=== PATIENT | male | born 1970 | race Caucasian/White ===

== ENCOUNTER → 2019-02-28 | Outpatient (CLI) | payer OTHER ==
[~2019-02-28] MED LIST: ANDR4DIS TD; BISO5TAB2 PO; CHOL4POW4 PO; OMEP40CA97 PO; PROA1AER2 INH; SIMV20TA22 PO; SYMB16INH INH
[2019-02-28 17:08] LABS: HEMATOCRIT 44.4 % (42.0-52.0); MEAN CORPUSCULAR HEMOGLOBIN 30.5 pg (27.0-33.0); MEAN CORPUSCULAR HGB CONC 33.8 g/dl (32.0-36.5); MEAN CORPUSCULAR VOLUME 90.4 fl (80.0-96.0); PLATELET COUNT, AUTOMATED 224 10^3/uL (150-450); RED BLOOD COUNT 4.91 10^6/uL (4.30-6.10); WHITE BLOOD COUNT 6.9 10^3/uL (4.0-10.0)
[2019-02-28 17:46] LABS: BLOOD UREA NITROGEN 18 MG/DL (7-18); CALCIUM LEVEL 9.3 MG/DL (8.5-10.1); CARBON DIOXIDE LEVEL 28 MEQ/L (21-32); CHLORIDE LEVEL 106 MEQ/L (98-107); CREATININE FOR GFR 1.28 MG/DL (0.70-1.30); GLOMERULAR FILTRATION RATE > 60.0 (>56); GLUCOSE, FASTING 91 MG/DL (70-100); POTASSIUM SERUM 4.2 MEQ/L (3.5-5.1); SODIUM LEVEL 140 MEQ/L (136-145)
== END ==
LOC: M PLALAB 15:47
PROVIDERS: ATTEND Urology
DX: Z01.818 Encounter for other preprocedural examination (principal); N50.89 Other specified disorders of the male genital organs

== ENCOUNTER 2019-03-06 10:41 | Day surgery (SDC) | payer BC, OTHER ==
[~2019-03-06] VITALS: Ht 175.3 cm; Wt 76.1 kg
[~2019-03-06 10:41] MED LIST changes: +LR 1,000 ML IV ONE
[2019-03-06] MEDS ORDERED: LIDOCAINE 2% INJ 100 MG/5 ML SDV (FOR ANES.) As Ordered ONE (11:11)
[2019-03-06] MEDS ORDERED: MIDAZOLAM INJ 2 MG/2 ML VIAL (J2250) As Ordered ONE (11:11)
[2019-03-06] MEDS ORDERED: PROPOFOL 200 MG/20 ML VIAL As Ordered ONE (11:11)
[2019-03-06] MEDS ORDERED: fentaNYL 250 MCG/5 ML INJECTION (J3010) As Ordered ONE (11:11)
[2019-03-06] MEDS ORDERED: ceFAZolin SOD 2 GM in IV 1 EA IV ONE (11:15)
[2019-03-06] MEDS ORDERED: PHENYLephrine HCL 500 MCG/5 ML (100MCG/ML) SYRINGE (J2370) As Ordered ONE (11:16)
[2019-03-06] MEDS ORDERED: ePHEDrine SULFATE 25 MG/5 ML(5MG/ML) SYRINGE As Ordered ONE (11:16)
[2019-03-06] MEDS ORDERED: LIDOCAINE 1% SDV INJ 30 ML VIAL As Ordered ONE (12:13)
[2019-03-06] MEDS ORDERED: BUPIVACAINE HCL 0.25% 30 ML VIAL As Ordered ONE (12:13)
[2019-03-06] MEDS ORDERED: ROCURONIUM BROMIDE 50 MG/5 ML VIAL As Ordered ONE ×2 (12:36→13:00)
[2019-03-06] MEDS ORDERED: dexameTHASONE 4 MG/ML 1ML VIAL (J1100) As Ordered ONE (12:36)
[2019-03-06] MEDS ORDERED: ONDANSETRON 4MG/2ML VIAL (J2405) As Ordered ONE (12:57)
[2019-03-06] MEDS ORDERED: ACETAMINOPHEN 1000MG 100ML IV BTL (OFIRMEV) (J0131 PER 10MG) As Ordered ONE (13:11)
[2019-03-06] MEDS ORDERED: GLYCOPYRROLATE INJ 0.2 MG/ML 2 ML VIAL As Ordered ONE (13:14)
[2019-03-06] MEDS ORDERED: NEOSTIGMINE 10 MG/10 ML VIAL (J2710) As Ordered ONE (13:14)
--- NOTE | 2019-03-06 13:35 | ECGEPIP ---
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 No prior ECG available for comparison at the time of interpretation. Electronically Signed on 03-06-2019 13:35:04 EST by Hawk Toro
[2019-03-06] MEDS ORDERED: PERCOCET 5MG/325MG TAB As Ordered ONE (14:13)
[2019-03-06] MEDS ORDERED: ENDO5TAB PO (14:15)
--- NOTE | 2019-03-06 14:20 | ROOPDOC ---
[facility] Report Of Operation Report of Operation DATE OF PROCEDURE: 03/06/19 PREPROCEDURE DIAGNOSIS: Right testicular mass. POSTPROCEDURE DIAGNOSIS: Right testicular mass. PROCEDURE: Right radical orchiectomy. SURGEON: Su Cartwright MD PRINTER SLOTTER HELPER: None. ANESTHESIA: General. OPERATIVE INDICATIONS: This is a 48 year-old male who was recently found to have a 4.6cm solid mass in the right testicle, concerning for malignancy. It was recommended that he be brought to the operating room today for the above listed procedure. DESCRIPTION OF PROCEDURE: The patient was brought to the operating room where general anesthesia was induced. Prophylactic antibiotics were infused. He was then placed in the supine position and prepped and draped in the usual sterile fashion. At this point, a 4 cm incision was made in the skin overlying the right external ring. I then dissected down through the subcutaneous tissue. The external oblique fascia was then opened. The spermatic cord was identified and isolated. A Scar drain was wrapped around the cord. We then delivered the testicle into the wound. We then dissected off the Gubernacular fibers between the testicle and the skin until the testicle was completely free of the scrotal skin. We then dissected the spermatic cord proximally until we got to the level of the internal ring. At this point, a right angle clamp was placed on the cord. Just distal to the clamp, the cord was in two different packets and then two additional clamps were placed around these packets. The spermatic cord was then transected using scissors and then the right testicle and spermatic cord were delivered off the table to be sent for pathologic analysis. At this point, the two separate packets were ligated with #0 silk sutures and then they were cut long. Just proximal to the most proximal clamp, the spe rmatic cord was suture ligated with #0 silk suture. At this point, we checked hemostasis and hemostasis appeared excellent. We then closed the external oblique fascia with a running #2-0 Vicryl suture. The wound was then thoroughly irrigated and then the subcutaneous tissue was reapproximated with interrupted #2-0 chromic suture. The skin was then closed with a running #4-0 Monocryl subcuticular stitch. Local anesthetic was applied. Dermabond was applied. This marked conclusion of the procedure. The patient was then awakened from anesthesia, transported to the recovery room in stable condition. ESTIMATED BLOOD LOSS: 5mL. COMPLICATIONS: None. SPECIMENS: Right testicle and spermatic cord. PLAN: The patient will followup in the clinic in a week or two to discuss pathology results. SU CARTWRIGHT MD Mar 06, 2019 14:20
[2019-03-06] MEDS ORDERED: ONDANSETRON 4MG/2ML VIAL (J2405) IV PRN (14:30)
[2019-03-06] MEDS ORDERED: fentaNYL 100 MCG/2 ML INJECTION (J3010) IV PRN (14:30)
[2019-03-06] MEDS ORDERED: LR 1,000 ML IV SCH (14:30)
[2019-03-06 14:40] VITALS: BP 165/89
[2019-03-06] MEDS ORDERED: PERCOCET 5MG/325MG TAB PO PRN (15:30)
== END 2019-03-06 16:25 | disposition home or self-care (01) ==
LOC: M SDC 10:41
PROVIDERS: ATTEND Urology
DX: C62.01 Malignant neoplasm of undescended right testis (principal); I10 Essential (primary) hypertension; E78.00 Pure hypercholesterolemia, unspecified; K21.9 Gastro-esophageal reflux disease without esophagitis; J45.909 Unspecified asthma, uncomplicated; Z79.899 Other long term (current) drug therapy
CPT/HCPCS: 54530; 88309; 93005; J0131; J0690; J1100; J2250; J2370; J2405; J2710; J3010

== ENCOUNTER → 2019-03-30 | Outpatient (CLI) | payer BC, OTHER ==
[~2019-03-30] MED LIST changes: +ENDO5TAB PO; +ISOVUE-370 76% 100ML VIAL (Q9967) As Ordered ONE; -LR 1,000 ML IV ONE
--- NOTE | 2019-03-30 16:36 | REP ---
Clinical: History of metastatic testicular carcinoma. Technique: Axial contrast enhanced images from the thoracic inlet to the upper abdomen with coronal and sagittal re-formations using 100 ml Isovue 370 intravenous contrast material. Comparison: None currently available. Findings: The bilateral lung golden are well-aerated and clear. No consolidation. No nodule or mass lesion to suggest metastatic disease. No pleural effusion. Tracheobronchial tree is patent. No obvious axillary, hilar, or mediastinal adenopathy. Mediastinum demonstrates normal thoracic aorta, pulmonary vasculature and heart/pericardium. Surrounding musculoskeletal structures are intact. Limited upper abdomen demonstrates normal bilateral adrenal glands and evidence of prior cholecystectomy. Impression: 1. No acute mediastinal or pleuroparenchymal process. 2. No evidence for metastatic disease. 3. No prior examinations are available for comparison and reevaluation may be made if and when such prior examinations are obtained. Electronically Signed by Norman Oneill MD 03/30/2019 04:28 P
== END ==
LOC: M RAD 15:35
PROVIDERS: ATTEND Urology
DX: C79.9 Secondary malignant neoplasm of unspecified site (principal); C62.90 Malignant neoplasm of unspecified testis, unspecified whether descended or undescended
CPT/HCPCS: 71260; Q9967

== ENCOUNTER → 2019-04-11 | Outpatient (CLI) | payer BC, OTHER ==
[~2019-04-11] MED LIST changes: -ISOVUE-370 76% 100ML VIAL (Q9967) As Ordered ONE; +VITA500079 PO; +VITAD400CA FT
--- NOTE | 2019-04-11 13:29 | PFTRPT ---
Height: 69.00 Inches Weight: 170.00 Lbs BSA: 1.93 Diagnosis: Pre-screening DATE OF STUDY: 04/11/2019 ORDERED BY: Dr. Fred Funk Spirometry: Pre and post bronchodilator study of excellent technical quality. Forced vital capacity normal. FEV1 in proportion. Obstructive index is, therefore, normal. Flow Volume Loop: Expiratory limb of the flow volume loop is normal. No significant bronchodilator response identified. Lung Volumes: Total lung capacity normal. Residual volume in proportion. Diffusing Capacity: Diffusing capacity normal. Hemoglobin: Hemoglobin acceptable at 13.9. Airway Mechanics: Airway resistance and conductance are normal. IMPRESSION: Normal study. MTDD
== END ==
LOC: M CARPUL 12:57
PROVIDERS: ATTEND Internal Medicine Hematology
DX: C62.90 Malignant neoplasm of unspecified testis, unspecified whether descended or undescended (principal)

== ENCOUNTER 2019-04-17 07:16 | Inpatient (IN) | payer BC, OTHER ==
[~2019-04-17] VITALS: Ht 175.3 cm; Wt 78.0 kg
[2019-04-17 08:20] VITALS: BP 139/83
[2019-04-17] MEDS: D5W/0.45% SODIUM CHLORIDE 1,000 ML IV SCH ×5 (08:30→23:00)
[2019-04-17] MEDS ORDERED: ONDANSETRON 4MG/2ML VIAL (J2405) IV ONE ×2 (13:00→13:30)
[2019-04-17] MEDS ORDERED: FOSAPREPITANT PERIPHERAL LINE 30 MIN INFUSION (PREMIX) IV ONE ×2 (13:00)
[2019-04-17] MEDS ORDERED: dexameTHASONE 10 MG IV IV ONE ×2 (13:00→13:30)
[2019-04-17] MEDS ORDERED: OLANZapine 10 MG PO PO ONE ×2 (13:00→13:30)
[2019-04-17] MEDS ORDERED: FOSAPREPITANT PERIPHERAL LINE 30 MIN INFUSION IV ONE ×2 (13:00)
[2019-04-17] MEDS ORDERED: LR 1,000 ML IV SCH (13:45)
[2019-04-17] MEDS ORDERED: ONDANSETRON 4MG/2ML VIAL (J2405) IV PRN (13:45)
[2019-04-17] MEDS ORDERED: PROCHLORPERAZINE 5 MG TAB (S0183) PO PRN (13:45)
[2019-04-17] MEDS ORDERED: NS IV ONE ×2 (14:00→16:00)
[2019-04-17] MEDS ORDERED: MANNITOL IV ONE (14:00)
[2019-04-17] MEDS ORDERED: CISPLATIN IV ONE (14:00)
--- NOTE | 2019-04-17 14:36 | ONC.PHACK ---
CHEMO ADMIN CHECKLIST Order Contains Pt ID: Name, Order on Chemo Order Form?: Yes Order Form Includes ALL: Correct Tx Day, Correct Date, Correct Cycle Number Pt ID on Order form Matches: Pt ID on PHA Label Med on Chemo OrderForm Matches: PHA Label, Med Used for Preparation [facility] Apr 17, 2019 14:36
--- NOTE | 2019-04-17 14:55 | HPE ---
DATE OF ADMISSION: 04/17/2019 at approximately 1:26 p.m. The patient's primary care provider is Fred Funk. CHIEF COMPLAINT: The patient is being admitted to the hospital for monitoring while undergoing chemotherapy. HISTORY OF PRESENT ILLNESS: Mr. 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 He underwent a right radical orchiectomy in February of 2019 under the care of Dr. Calderon. Review of his electronic record from that hospitalization indicates that his preoperative tumor markers were all negative, as were his surgical margins, following his radical orchiectomy. Followup CT abdomen and pelvis showed that he had periaortic and anterior aortocaval lymphadenopathy. He was subsequently referred to Dr. Funk of oncology for chemotherapy. I did discuss Mr. Kirby's case with Dr. Funk today. He informs me that he is planning to treat Mr. Kirby with etoposide and cisplatin on a daily basis for the next 7 days. Every 3 weeks, he will require hospitalization for IV fluid hydration and a monitoring of his kidney function, as these chemotherapy agents are toxic to the renal system. Mr. Kirby is presently in the chemotherapy center awaiting the initiation of his chemotherapy. At the present moment, he is only complaining of some constipation. He denies having any chest discomfort, shortness of breath. He has not had any bleeding noted in his stools or any hematuria. He has not had any decreased urine output. He is otherwise feeling quite well, he tells me. ALLERGIES: NKDA. His current medications are etoposide, cisplatin, dexamethasone, Zyprexa, Zofran, and fosaprepitant, as well as intravenous (IV) fluids. His home medications are the following: Albuterol inhaler, bisoprolol, hydrochlorothiazide, budesonide, formoterol, cholecalciferol, cholestyramine, omeprazole, Endocet every 6 hours as needed for pain, simvastatin 20 mg daily, and then testosterone 4 mg patch daily. His past medical history is notable for gastroesophageal reflux disease (GERD), hyperlipidemia, asthma which is mild in severity, hypertension, low testosterone, gallstones. He is status post EGD and colonoscopy in the past. He has history of esophageal diverticulum. His surgical history is notable for a cholecystectomy. He underwent the right radical orchiectomy in February of 2019. FAMILY HISTORY: Is notable for his mother who at age 55 from unknown malignancy. Father at 81 from unknown cause. SOCIAL HISTORY: The patient is to his , Dolores. He resides at home. He is not a smoker. He does not use any illicit drugs. He drinks about four or five beers a week. No history of chronic alcoholism. 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 REVIEW OF SYSTEMS: Twelve-systems review with the patient this afternoon are otherwise negative except what is mentioned in history of present illness (HPI). On examination today, the patient's temperature is 97.6, pulse is 66, respiratory rate 16, blood pressure is 139/83, oxygen (O2) saturation is 99% on room air. In general, Mr. Kirby is a 48-year-old middle-age gentleman who appears his stated age. He appears to be in good health with adequate muscle bulk. His head is atraumatic, normocephalic. His pupils are symmetric and reactive to light. Oropharynx is clear. Neck is supple. No palpable lymphadenopathy in the anterior neckline along the cervical, supraclavicular regions. His trachea is midline. He has no thyroid gland tenderness. Lung sounds are appreciated bilaterally with no audible rales, wheezes, or rhonchi. Heart is S1, S2. No audible murmurs, rubs, or gallops. His abdomen is soft, nontender, nondistended. He is slightly bloated but no palpable masses. Extremities are without any cyanosis, clubbing, or edema. Cranial nerves II-XII are grossly intact.. The patient's gait is intact without any noticeable drift or gait instability. The patient has no focal or lateralizing peripheral neurological deficits. LABORATORIES: Have not been drawn at this time. IMPRESSION: 1. Stage IIB seminoma, status post right radical orchiectomy with retroperitoneal lymphadenopathy. The patient will be admitted to an inpatient status for ongoing chemotherapy consisting of cisplatin and etoposide. Dr. Funk of oncology will manage his chemotherapy medications. The patient will be placed on intravenous antiemetics, as well as intravenous fluids. We will check magnesium, as well as basic metabolic profile, on a daily basis. From my conversation with Dr. Funk, he would like Mr. Kirby at the time of discharge to go home on Slow-Mag two tablets daily, as well as potassium supplementation 20 mEq by mouth daily. 2. History of hypertension. For now, will just continue the patient on his bisoprolol. Will hold the hydrochlorothiazide, given the potential for renal toxicity with these chemotherapeutic agents. 3. Hyperlipidemia. He will be continued on his simvastatin. 4. Low testosterone. Will check with oncology if it is okay to continue with this. 5. Gastroesophageal reflux disease. He will be continued on his omeprazole. 6. Mild asthma, which is not exacerbated at this time. The patient will be continued on his albuterol inhaler as needed. The patient will be placed on Lovenox and sequential compression devices (SCDs) for deep venous thrombosis (DVT) prophylaxis. He will be a FULL CODE with his as his surrogate [id number].
[2019-04-17] MEDS ORDERED: ETOPOSIDE IV ONE (16:00)
[2019-04-17 18:54] LABS: ALBUMIN 3.8 GM/DL (3.2-5.2); ALT/SGPT 20 U/L (12-78); BILIRUBIN,TOTAL 0.3 MG/DL (0.2-1.0); BLOOD UREA NITROGEN 17 MG/DL (7-18); CALCIUM LEVEL 8.2 MG/DL (8.5-10.1); CARBON DIOXIDE LEVEL 26 MEQ/L (21-32); CHLORIDE LEVEL 111 MEQ/L (98-107); CREATININE FOR GFR 1.13 MG/DL (0.70-1.30); GLOMERULAR FILTRATION RATE > 60.0 (>56); GLUCOSE, FASTING 121 MG/DL (70-100); POTASSIUM SERUM 4.5 MEQ/L (3.5-5.1); SODIUM LEVEL 141 MEQ/L (136-145); TOTAL PROTEIN 7.1 GM/DL (6.4-8.2)
[2019-04-17] MEDS: ENOXAPARIN 40 MG/0.4 ML SYRINGE (J1650) SC SCH (19:08)
[2019-04-17 22:00] VITALS: BP 116/64
[2019-04-18 02:00] VITALS: BP 141/80
[2019-04-18] MEDS: D5W/0.45% SODIUM CHLORIDE 1,000 ML IV SCH ×6 (03:00→23:00)
[2019-04-18 06:00] VITALS: BP 129/77
[2019-04-18 06:12] LABS: HEMATOCRIT 36.9 % (42.0-52.0); HEMOGLOBIN 12.9 g/dl (13.5-17.5); MEAN CORPUSCULAR HEMOGLOBIN 30.7 pg (27.0-33.0); MEAN CORPUSCULAR VOLUME 87.9 fl (80.0-96.0); PLATELET COUNT, AUTOMATED 203 10^3/uL (150-450); WHITE BLOOD COUNT 11.4 10^3/uL (4.0-10.0)
[2019-04-18 06:40] LABS: ALBUMIN 3.1 GM/DL (3.2-5.2); ALT/SGPT 18 U/L (12-78); BILIRUBIN,TOTAL 0.3 MG/DL (0.2-1.0); BLOOD UREA NITROGEN 16 MG/DL (7-18); CARBON DIOXIDE LEVEL 25 MEQ/L (21-32); CHLORIDE LEVEL 110 MEQ/L (98-107); CREATININE FOR GFR 1.17 MG/DL (0.70-1.30); GLOMERULAR FILTRATION RATE > 60.0 (>56); GLUCOSE, FASTING 180 MG/DL (70-100); MAGNESIUM LEVEL 1.8 MG/DL (1.8-2.4); POTASSIUM SERUM 3.9 MEQ/L (3.5-5.1); SODIUM LEVEL 140 MEQ/L (136-145); TOTAL PROTEIN 6.3 GM/DL (6.4-8.2)
[2019-04-18] MEDS: ENOXAPARIN 40 MG/0.4 ML SYRINGE (J1650) SC SCH (08:59)
[2019-04-18] MEDS: CHOLESTYRAMINE 4 GM PWD PKT PO SCH ×2 (09:00→21:28)
[2019-04-18] MEDS: SYMBICORT 160/4.5MCG INHALER 6GM INH SCH ×2 (09:00→19:50)
[2019-04-18] MEDS ORDERED: OLANZapine 10 MG TAB PO ONE (11:00)
[2019-04-18] MEDS ORDERED: dexameTHASONE 4 MG/ML 1ML VIAL (J1100) IV ONE (11:00)
[2019-04-18] MEDS ORDERED: ONDANSETRON 4MG/2ML VIAL (J2405) IV ONE (11:00)
[2019-04-18] MEDS ORDERED: PERCOCET 5MG/325MG TAB PO PRN (11:15)
[2019-04-18] MEDS ORDERED: BLEOMYCIN SULFATE IV ONE (12:30)
[2019-04-18] MEDS ORDERED: NS IV ONE ×3 (12:30→14:40)
[2019-04-18] MEDS ORDERED: CISPLATIN IV ONE (12:40)
[2019-04-18] MEDS ORDERED: MANNITOL IV ONE (12:40)
--- NOTE | 2019-04-18 14:07 | ONC.PHACK ---
CHEMO ADMIN CHECKLIST Order Contains Pt ID: Name, Order on Chemo Order Form?: Yes Order Form Includes ALL: Correct Tx Day, Correct Date, Correct Cycle Number Pt ID on Order form Matches: Pt ID on PHA Label Med on Chemo OrderForm Matches: PHA Label, Med Used for Preparation [facility] Apr 18, 2019 14:07
[2019-04-18] MEDS ORDERED: ETOPOSIDE IV ONE (14:40)
[2019-04-18] MEDS: OMEPRAZOLE 20 MG CAP PO SCH (16:49)
[2019-04-18] MEDS: bisoproloL fumarate 5 MG TAB PO SCH (16:50)
[2019-04-18 16:51] VITALS: BP 150/95
--- NOTE | 2019-04-18 17:55 | IPNPDOC ---
Date Seen The patient was seen on 04/18/19. Progress Note Addendum: A/P: Right testicular cancer stage 2B seminoma -s/p orchiectomy -7days Chemo with etoposide and cisplatin -daily creatinine monitoring and ivfluid hydration to prevent nephrotoxicity. VS, I&O, 24H, Fishbone Vital Signs/I&O Vital Signs Date Time Temp Pulse Resp B/P (MAP) Pulse Ox O2 Delivery O2 Flow Rate FiO2 04/18/19 16:50 90 150/95 04/18/19 06:00 98.1 18 92 Room Air I&O- Last 24 Hours up to 6 AM 04/18/19 06:00 Intake Total 3597.75 ml Output Total 2350 ml Balance 1247.75 ml Laboratory Data 24H LABS Laboratory Tests 2 04/17/19 18:10: Anion Gap 4L, Glomerular Filtration Rate > 60.0, Calcium Level 8.2L, Total Bilirubin 0.3, Aspartate Amino Transf (AST/SGOT) 11, Alanine Aminotransferase (ALT/SGPT) 20, Alkaline Phosphatase 69, Total Protein 7.1, Albumin 3.8, Albumin/Globulin Ratio 1.15 04/18/19 05:48: Anion Gap 5L, Glomerular Filtration Rate > 60.0, Calcium Level 8.0L, Total Bilirubin 0.3, Aspartate Amino Transf (AST/SGOT) 14, Alanine Aminotransferase (ALT/SGPT) 18, Alkaline Phosphatase 56, Total Protein 6.3L, Albumin 3.1L, Albumin/Globulin Ratio 0.97L, Nucleated Red Blood Cells % (auto) 0.0, Magnesium Level 1.8 CBC/BMP Laboratory Tests 04/17/19 18:10 04/18/19 05:48 PAKO SMITH MD Apr 18, 2019 17:55
--- NOTE | 2019-04-18 18:07 | IPN ---
DATE: 04/18/2019 Patient has no new complaints. Creatinine is still normal. Receiving chemotherapy through the [facility] today. No other issues per nursing overnight. VITAL SIGNS: Temperature 98.1, pulse 96, respiratory rate 18, blood pressure 129/77, 92% on room air. GENERAL: Awake, alert, oriented times three, answering questions appropriately. LUNGS: Clear to auscultation. No wheezes, rales, or rhonchi. HEART: S1, S2, sinus rhythm. ABDOMEN: Soft, nontender, nondistended. Positive bowel sounds EXTREMITIES: No cyanosis, clubbing, or pitting edema. LABORATORY DATA: White count 11.4, hemoglobin 12, hematocrit 36, platelet count 203. Sodium 140, potassium 3.9, chloride 110, bicarbonate 25, BUN 6, creatinine 1.7, glucose 180. ASSESSMENT AND PLAN: This is a 48-year-old male admitted on 04/17/2019 for monitoring for renal failure, undergoing chemotherapy. Patient has a known history of right testicular malignancy, which was seminoma, stage IIB, status post right radial orchiectomy in February [address] Calderon, urologist. Followup CT shows periaortic and anterior aortocaval lymphadenopathy. Subsequently referred to Dr. Funk for chemotherapy. Patient is to receive etoposide and cisplatin for the next 7 days. Patient will require admission for intravenous (IV) fluid hydration, monitoring of kidney function due to nephrotoxicity. Patient currently has no new complaints. ACUTE ISSUES: 1. Right Testicular cancer Seminoma, stage IIB, status post right radical orchiectomy with retroperitoneal lymphadenopathy, undergoing chemotherapy with cisplatin and etoposide, managed by oncologist, Dr. Funk. Currently receiving intravenous fluids and daily metabolic panel monitoring. 2. Hypertension. May be resumed on home dose of bisoprolol. Hydrochlorothiazide will be held due to nephrotoxic risk. 3. Dyslipidemia. Continue on simvastatin. 4. Low testosterone. Resume on testosterone patch. 5. Reflux, on omeprazole. 6. Mild asthma. No acute exacerbation. MTDD
[2019-04-18 21:01] VITALS: BP 128/73
[2019-04-18] MEDS: SIMVASTATIN 20 MG TAB PO SCH (21:28)
[2019-04-18] MEDS: ANDRODERM TD SCH (21:29)
[2019-04-19] MEDS: D5W/0.45% SODIUM CHLORIDE 1,000 ML IV SCH ×6 (03:00→22:18)
[2019-04-19 05:45] VITALS: BP 109/65
[2019-04-19 07:14] LABS: HEMATOCRIT 35.8 % (42.0-52.0); MEAN CORPUSCULAR HEMOGLOBIN 30.3 pg (27.0-33.0); MEAN CORPUSCULAR HGB CONC 33.5 g/dl (32.0-36.5); MEAN CORPUSCULAR VOLUME 90.4 fl (80.0-96.0); PLATELET COUNT, AUTOMATED 183 10^3/uL (150-450); RED BLOOD COUNT 3.96 10^6/uL (4.30-6.10); WHITE BLOOD COUNT 13.9 10^3/uL (4.0-10.0)
[2019-04-19 07:41] LABS: ALBUMIN 2.9 GM/DL (3.2-5.2); ALT/SGPT 16 U/L (12-78); BILIRUBIN,TOTAL 0.2 MG/DL (0.2-1.0); BLOOD UREA NITROGEN 12 MG/DL (7-18); CALCIUM LEVEL 7.7 MG/DL (8.5-10.1); CARBON DIOXIDE LEVEL 23 MEQ/L (21-32); CHLORIDE LEVEL 113 MEQ/L (98-107); CREATININE FOR GFR 1.07 MG/DL (0.70-1.30); GLOMERULAR FILTRATION RATE > 60.0 (>56); GLUCOSE, FASTING 177 MG/DL (70-100); MAGNESIUM LEVEL 1.8 MG/DL (1.8-2.4); POTASSIUM SERUM 3.5 MEQ/L (3.5-5.1); SODIUM LEVEL 141 MEQ/L (136-145); TOTAL PROTEIN 5.8 GM/DL (6.4-8.2)
[2019-04-19] MEDS: SYMBICORT 160/4.5MCG INHALER 6GM INH SCH ×2 (07:51→20:04)
[2019-04-19] MEDS: ENOXAPARIN 40 MG/0.4 ML SYRINGE (J1650) SC SCH (08:41)
[2019-04-19] MEDS: CHOLESTYRAMINE 4 GM PWD PKT PO SCH ×2 (08:41→21:18)
[2019-04-19] MEDS: OMEPRAZOLE 20 MG CAP PO SCH (08:45)
[2019-04-19] MEDS: bisoproloL fumarate 5 MG TAB PO SCH (08:45)
[2019-04-19] MEDS ORDERED: OLANZapine 10 MG TAB PO ONE (11:00)
[2019-04-19] MEDS ORDERED: ONDANSETRON 4MG/2ML VIAL (J2405) IV ONE (11:00)
[2019-04-19] MEDS ORDERED: dexameTHASONE 4 MG/ML 1ML VIAL (J1100) IV ONE (11:00)
[2019-04-19] MEDS ORDERED: MANNITOL IV ONE (12:00)
[2019-04-19] MEDS ORDERED: NS IV ONE ×2 (12:00→14:00)
[2019-04-19] MEDS ORDERED: CISPLATIN IV ONE (12:00)
--- NOTE | 2019-04-19 13:02 | ONC.PHACK ---
CHEMO ADMIN CHECKLIST Order Contains Pt ID: Name, Order on Chemo Order Form?: Yes Order Form Includes ALL: Correct Tx Day, Correct Date, Correct Cycle Number Pt ID on Order form Matches: Pt ID on PHA Label Med on Chemo OrderForm Matches: PHA Label, Med Used for Preparation [facility] Apr 19, 2019 13:02
[2019-04-19 14:00] VITALS: BP 130/80
[2019-04-19] MEDS ORDERED: ETOPOSIDE IV ONE (14:00)
--- NOTE | 2019-04-19 14:37 | IPN ---
DATE: 04/19/2019 Patient reports some tremors in his hands that started yesterday. No fever or chills, however. Patient does not have any other concerns. Denies any nausea, vomiting, abdominal pain. No testicular pain. No back pain. Temperature 97.4, pulse 73, respiratory 16, blood pressure 109/65, 95% on room air. Generally, awake, alert, oriented times three, answering questions appropriately. Lungs are clear to auscultation. No wheezing, rales, or rhonchi. Heart: S1, S2, sinus rhythm. Abdomen is soft, nontender, nondistended. Positive bowel sounds. Extremities: No cyanosis, clubbing, or pitting edema. LABORATORY DATA: White count 13.9, hemoglobin 12, hematocrit 35, platelet count 183. Sodium 141, potassium 3.5, chloride 113, bicarbonate 23, BUN 12, creatinine 1.07, glucose of 177. ASSESSMENT AND PLAN: This is a 48-year-old male admitted on 04/17/2019 for monitoring for renal failure, currently undergoing chemotherapy with cisplatin and etoposide for right testicular cancer, seminoma stage IIB, status post right radial orchiectomy in February [address] Calderon, urologist with periaortic and anterior aortocaval lymphadenopathy. Patient is currently being managed by oncologist, Dr. Funk, with chemotherapy for the next 7 days to complete chemotherapy on Wednesday with etoposide and cisplatin. ACUTE ISSUES: 1. Right testicular cancer, seminoma, stage IIB, status post right radical orchiectomy with retroperitoneal lymphadenopathy, undergoing chemotherapy with cisplatin, etoposide, managed by his oncologist, Dr. Funk. Patient currently receives intravenous fluids and daily metabolic panel monitoring for nephrotoxicity. 2. Hypertension. Patient has been resumed on bisoprolol. Hydrochlorothiazide has been held due to nephrotoxic risk. 3. Dyslipidemia. Continue on simvastatin. 4. Low testosterone. On testosterone patch. 5. Reflux. On omeprazole. 6. Mild asthma. No acute exacerbation at this time. DISPOSITION: Discharge home on Wednesday after chemotherapy on Wednesday. MTDD
[2019-04-19 20:41] VITALS: BP 120/75
[2019-04-19] MEDS: SIMVASTATIN 20 MG TAB PO SCH (21:17)
[2019-04-19] MEDS: ANDRODERM TD SCH (21:18)
[2019-04-20] MEDS: D5W/0.45% SODIUM CHLORIDE 1,000 ML IV SCH ×4 (02:32→16:15)
[2019-04-20 05:58] VITALS: BP 131/79
[2019-04-20 07:14] LABS: HEMATOCRIT 37.2 % (42.0-52.0); HEMOGLOBIN 12.4 g/dl (13.5-17.5); MEAN CORPUSCULAR HEMOGLOBIN 30.5 pg (27.0-33.0); MEAN CORPUSCULAR HGB CONC 33.3 g/dl (32.0-36.5); MEAN CORPUSCULAR VOLUME 91.4 fl (80.0-96.0); PLATELET COUNT, AUTOMATED 188 10^3/uL (150-450); RED BLOOD COUNT 4.07 10^6/uL (4.30-6.10)
[2019-04-20 07:45] LABS: ALBUMIN 2.9 GM/DL (3.2-5.2); ALT/SGPT 16 U/L (12-78); BILIRUBIN,TOTAL 0.4 MG/DL (0.2-1.0); BLOOD UREA NITROGEN 11 MG/DL (7-18); CALCIUM LEVEL 7.4 MG/DL (8.5-10.1); CARBON DIOXIDE LEVEL 22 MEQ/L (21-32); CHLORIDE LEVEL 111 MEQ/L (98-107); CREATININE FOR GFR 1.13 MG/DL (0.70-1.30); GLOMERULAR FILTRATION RATE > 60.0 (>56); GLUCOSE, FASTING 148 MG/DL (70-100); MAGNESIUM LEVEL 1.6 MG/DL (1.8-2.4); POTASSIUM SERUM 3.3 MEQ/L (3.5-5.1); SODIUM LEVEL 141 MEQ/L (136-145); TOTAL PROTEIN 5.8 GM/DL (6.4-8.2)
[2019-04-20] MEDS: SYMBICORT 160/4.5MCG INHALER 6GM INH SCH ×2 (07:51→19:12)
[2019-04-20] MEDS ORDERED: FUROSEMIDE 40 MG/4 ML VIAL (J1940) IV ONE (08:00)
[2019-04-20] MEDS: CHOLESTYRAMINE 4 GM PWD PKT PO SCH ×2 (08:42→21:10)
[2019-04-20] MEDS: bisoproloL fumarate 5 MG TAB PO SCH (08:42)
[2019-04-20] MEDS: ENOXAPARIN 40 MG/0.4 ML SYRINGE (J1650) SC SCH (08:43)
[2019-04-20] MEDS: OMEPRAZOLE 20 MG CAP PO SCH (08:43)
[2019-04-20] MEDS ORDERED: MAG SULF 1GM/100ML (MAG RUN) 1 GM in IV 1 EA IV ONE (09:00)
[2019-04-20] MEDS ORDERED: POTASSIUM CHLORIDE 10 MEQ SR TABLET PO ONE (09:00)
--- NOTE | 2019-04-20 10:04 | IPN ---
DATE: 04/19/2019 SUBJECTIVE: The patient reports increase in edema in bilateral upper and lower extremities. No trouble breathing this morning. No paroxysmal nocturnal dyspnea or orthopnea. The patient denies any dyspnea on exertion. The patient has been receiving intravenous fluids after chemotherapy for the past 5 days. He received 6 liters of fluid yesterday and 5 liters the day before and 3.5 liters prior. His admission weight is 78 kg, he has not been weighed today. The patient reports dilute clear urine. PHYSICAL EXAMINATION: VITAL SIGNS: Temperature 98.1, pulse 86, respiratory rate 16, blood pressure 131/79, 95% on room air. GENERAL: Awake, alert and oriented times three. Answering questions appropriately. No respiratory distress. No use of respiratory accessory muscles. No conversational dyspnea. Speaks in full sentences. No jugular venous distention (JVD), thyromegaly or cervical lymphadenopathy. Moist mucous membranes. LUNGS: Air entry is equal bilaterally. Clear to auscultation. There is no wheezing, rales or rhonchi. No adventitious breath sounds. HEART: S1, S2. Sinus rhythm. No rebound, guarding. No hepatosplenomegaly. EXTREMITIES: Trace edema. Upper extremities with positive edema. No erythema or tenderness. LABORATORY DATA: White count 11, hemoglobin 12, hematocrit 37, platelet count 188. Metabolic panel is still pending. Previous creatinine is 1.07. ASSESSMENT AND PLAN: This is a 48-year-old male with recent diagnosis in February of a right testicular cancer, seminoma type, stage II B, status post right radical orchiectomy by Dr. Calderon with periaortic and anterior aorta caval lymphadenopathy. The patient is being monitored for renal failure due to ongoing chemotherapy with cisplatin and etoposide and being hydrated after chemotherapy daily. The patient is managed by oncologist, Dr. Funk. He is to complete chemotherapy on Wednesday, possible discharge on Wednesday. ACUTE ISSUES: 1. Right testicular cancer, seminoma stage II B, status post right radical orchiectomy with retroperitoneal lymphadenopathy, currently undergoing chemotherapy with Cisplatin, etoposide, managed by oncologist, Dr. Funk. The patient has been hydrated after chemotherapy and currently has been in positive fluid balance for the past 3 days and currently complains of anasarca. He currently has no paroxysmal nocturnal dyspnea or orthopnea or dyspnea on exertion. Lungs are still clear. 2. Hypertension. The patient has been resumed on his home dose of bisoprolol. Hydrochlorothiazide has been held due to possible added effect of being on nephrotoxic along with the cisplatin. 3. Dyslipidemia. On home dose of simvastatin. 4. Low testosterone. On testosterone patch. 5. Reflux. On Prilosec. 6. History of asthma. Currently has no wheezing. DISPOSITION: Discharge home on Wednesday after the last chemotherapy on Wednesday. MTDD
[2019-04-20] MEDS ORDERED: dexameTHASONE 4 MG/ML 1ML VIAL (J1100) IV ONE (11:00)
[2019-04-20] MEDS ORDERED: FOSAPREPITANT PERIPHERAL LINE 30 MIN INFUSION IV ONE ×2 (11:00)
[2019-04-20] MEDS ORDERED: ONDANSETRON 4MG/2ML VIAL (J2405) IV ONE (11:00)
[2019-04-20] MEDS ORDERED: OLANZapine 10 MG TAB PO ONE (11:00)
--- NOTE | 2019-04-20 11:28 | ONC.PHACK ---
CHEMO ADMIN CHECKLIST Order Contains Pt ID: Name, Order on Chemo Order Form?: Yes Order Form Includes ALL: Correct Tx Day, Correct Date, Correct Cycle Number Pt ID on Order form Matches: Pt ID on PHA Label Med on Chemo OrderForm Matches: PHA Label, Med Used for Preparation [facility] Apr 20, 2019 11:28
[2019-04-20] MEDS ORDERED: NS IV ONE ×2 (12:00→14:00)
[2019-04-20] MEDS ORDERED: CISPLATIN IV ONE (12:00)
[2019-04-20] MEDS ORDERED: MANNITOL IV ONE (12:00)
[2019-04-20 12:53] VITALS: BP 128/80
[2019-04-20 14:00] VITALS: BP 141/98
[2019-04-20] MEDS ORDERED: ETOPOSIDE IV ONE (14:00)
[2019-04-20] MEDS: ANDRODERM TD SCH (21:10)
[2019-04-20] MEDS: SIMVASTATIN 20 MG TAB PO SCH (21:10)
[2019-04-20 21:15] VITALS: BP 141/97
[2019-04-21 04:00] VITALS: BP 142/93
[2019-04-21 06:18] LABS: HEMOGLOBIN 12.4 g/dl (13.5-17.5); MEAN CORPUSCULAR HEMOGLOBIN 30.8 pg (27.0-33.0); MEAN CORPUSCULAR HGB CONC 34.4 g/dl (32.0-36.5); MEAN CORPUSCULAR VOLUME 89.6 fl (80.0-96.0); PLATELET COUNT, AUTOMATED 207 10^3/uL (150-450); RED BLOOD COUNT 4.02 10^6/uL (4.30-6.10); WHITE BLOOD COUNT 8.9 10^3/uL (4.0-10.0)
[2019-04-21 06:51] LABS: ALBUMIN 2.7 GM/DL (3.2-5.2); ALT/SGPT 16 U/L (12-78); BILIRUBIN,TOTAL 0.3 MG/DL (0.2-1.0); BLOOD UREA NITROGEN 17 MG/DL (7-18); CALCIUM LEVEL 7.8 MG/DL (8.5-10.1); CARBON DIOXIDE LEVEL 23 MEQ/L (21-32); CHLORIDE LEVEL 109 MEQ/L (98-107); CREATININE FOR GFR 1.18 MG/DL (0.70-1.30); GLOMERULAR FILTRATION RATE > 60.0 (>56); GLUCOSE, FASTING 117 MG/DL (70-100); MAGNESIUM LEVEL 1.9 MG/DL (1.8-2.4); POTASSIUM SERUM 4.4 MEQ/L (3.5-5.1); SODIUM LEVEL 139 MEQ/L (136-145); TOTAL PROTEIN 5.8 GM/DL (6.4-8.2)
[2019-04-21] MEDS: SYMBICORT 160/4.5MCG INHALER 6GM INH SCH ×2 (07:59→20:04)
[2019-04-21] MEDS: OMEPRAZOLE 20 MG CAP PO SCH (08:31)
[2019-04-21] MEDS: D5W/0.45% SODIUM CHLORIDE 1,000 ML IV SCH ×5 (08:31→23:15)
[2019-04-21] MEDS: bisoproloL fumarate 5 MG TAB PO SCH (08:32)
[2019-04-21] MEDS: ENOXAPARIN 40 MG/0.4 ML SYRINGE (J1650) SC SCH (08:33)
[2019-04-21] MEDS: CHOLESTYRAMINE 4 GM PWD PKT PO SCH ×2 (08:33→19:36)
[2019-04-21] MEDS ORDERED: OLANZapine 10 MG TAB PO ONE (11:30)
[2019-04-21] MEDS ORDERED: ONDANSETRON 4MG/2ML VIAL (J2405) IV ONE (11:30)
[2019-04-21] MEDS ORDERED: dexameTHASONE 4 MG/ML 1ML VIAL (J1100) IV ONE (11:30)
--- NOTE | 2019-04-21 11:59 | ONC.PHACK ---
CHEMO ADMIN CHECKLIST Order Contains Pt ID: Name, Order on Chemo Order Form?: Yes Order Form Includes ALL: Correct Tx Day, Correct Date, Correct Cycle Number Pt ID on Order form Matches: Pt ID on PHA Label Med on Chemo OrderForm Matches: PHA Label, Med Used for Preparation [facility] Apr 21, 2019 11:59
[2019-04-21] MEDS ORDERED: CISPLATIN IV ONE (12:30)
[2019-04-21] MEDS ORDERED: MANNITOL IV ONE (12:30)
[2019-04-21] MEDS ORDERED: NS IV ONE ×2 (12:30→14:30)
[2019-04-21 14:00] VITALS: BP 142/92
[2019-04-21] MEDS ORDERED: ETOPOSIDE IV ONE (14:30)
[2019-04-21] MEDS: ANDRODERM TD SCH (19:36)
[2019-04-21] MEDS: SIMVASTATIN 20 MG TAB PO SCH (19:36)
--- NOTE | 2019-04-21 20:43 | IPN ---
DATE: 04/21/2019 Patient denies any shortness of breath despite fluid hydration. We started this morning chemotherapy. He did notice increasing edema bilateral upper extremities, but none in lower extremities. He is ambulating well. Tremors in his hands have improved. He is afebrile. No fever, chills or shortness of breath. Temperature 97.8, pulse 83, respiratory rate 18, blood pressure 142/92, 97% on room air. GENERAL: Patient is awake, alert, oriented times three, answering questions appropriately. LUNGS: Clear to auscultation. No wheezing, rales or rhonchi. HEART: S1, S2. Sinus rhythm. ABDOMEN: Soft, nontender, nondistended. Positive bowel sounds. EXTREMITIES: No cyanosis or clubbing. Patient had increasing edema bilateral upper extremities. LABORATORY DATA: White count 8.9, hemoglobin 12, hematocrit 36, platelet count 207. Sodium 139, potassium 4.4, chloride 109, bicarbonate 23, BUN 17, creatinine 1.18, glucose 117. ASSESSMENT AND PLAN: This is a 48-year-old male with recent diagnosis of right testicular cancer, seminoma type, stage II B with periaortic and anterior aortocaval lymphadenopathy, status post right radical orchiectomy by Dr. Calderon, being monitored for renal failure due to ongoing chemotherapy with cisplatin and etoposide, currently being hydrated. Patient has developed some swelling of his bilateral upper extremities, but no shortness of breath, no lower extremity edema, no paroxysmal nocturnal dyspnea (PND) or orthopnea. He has had episode of slightly elevated blood pressure, which is well-controlled at this time. PLAN: Continue with chemotherapy, hydration, monitoring for nephrotoxicity and discharge home. MTDD
[2019-04-21 22:33] VITALS: BP 137/88
[2019-04-22] MEDS: D5W/0.45% SODIUM CHLORIDE 1,000 ML IV SCH ×2 (03:16→07:09)
[2019-04-22 06:18] VITALS: BP 142/90
[2019-04-22 06:27] LABS: HEMOGLOBIN 12.8 g/dl (13.5-17.5); MEAN CORPUSCULAR HEMOGLOBIN 30.2 pg (27.0-33.0); MEAN CORPUSCULAR HGB CONC 33.7 g/dl (32.0-36.5); MEAN CORPUSCULAR VOLUME 89.6 fl (80.0-96.0); PLATELET COUNT, AUTOMATED 189 10^3/uL (150-450); RED BLOOD COUNT 4.24 10^6/uL (4.30-6.10); WHITE BLOOD COUNT 9.2 10^3/uL (4.0-10.0)
[2019-04-22 06:49] LABS: ALBUMIN 2.9 GM/DL (3.2-5.2); ALT/SGPT 20 U/L (12-78); BILIRUBIN,TOTAL 0.2 MG/DL (0.2-1.0); BLOOD UREA NITROGEN 23 MG/DL (7-18); CALCIUM LEVEL 7.9 MG/DL (8.5-10.1); CARBON DIOXIDE LEVEL 25 MEQ/L (21-32); CHLORIDE LEVEL 107 MEQ/L (98-107); CREATININE FOR GFR 1.14 MG/DL (0.70-1.30); GLOMERULAR FILTRATION RATE > 60.0 (>56); GLUCOSE, FASTING 136 MG/DL (70-100); SODIUM LEVEL 138 MEQ/L (136-145)
[2019-04-22] MEDS: SYMBICORT 160/4.5MCG INHALER 6GM INH SCH (07:38)
[2019-04-22 08:54] VITALS: BP 142/90
[2019-04-22] MEDS: bisoproloL fumarate 5 MG TAB PO SCH (08:54)
[2019-04-22] MEDS: CHOLESTYRAMINE 4 GM PWD PKT PO SCH (08:54)
[2019-04-22] MEDS: OMEPRAZOLE 20 MG CAP PO SCH (08:54)
[2019-04-22] MEDS: ENOXAPARIN 40 MG/0.4 ML SYRINGE (J1650) SC SCH (08:54)
--- NOTE | 2019-04-24 07:11 | DSES ---
DATE OF ADMISSION: 04/17/2019 DATE OF DISCHARGE: 04/22/2019 Oncologist: Dr. Fred Esposito. PRIMARY DISCHARGE DIAGNOSES: 1. 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 2. Hypertension. 3. Hypokalemia. 4. Hypomagnesemia. DISCHARGE MEDICATIONS: - albuterol two puffs every 4 hours as needed for shortness of breath - bisoprolol one tablet daily - hydrochlorothiazide 6.25 mg daily - Symbicort two puffs inhaled twice a day - vitamin D 2 tablets daily - cholestyramine 4 grams twice a day - Prilosec 40 mg daily - Endocet one tablet every 6 as needed for pain - simvastatin 20 daily - testosterone 4 mg patch daily DISCHARGE INSTRUCTIONS: The patient is to avoid all nonsteroidal anti-inflammatories, Aleve, avoid dehydration. Primary care physician appointment and Dr. Funk appointment within seven days of hospital discharge. HOSPITAL COURSE: This is a 48-year-old male with recent diagnosis of right testicular cancer seminoma type IIB admitted for inpatient chemotherapy with etoposide and Cisplatin for electrolytes, as well as renal failure monitoring. The patient received five full days of chemotherapy with no changes in his creatinine. He was hydrated at 200 mL per hour, about 3-5 liters after chemotherapy was given with no resultant azotemia or increase in creatinine. The patient had episodes of hypokalemia and hypomagnesemia which were both supplemented. He did complain of some tremors in his hands but no paresthesias which resolved most likely secondary to his inhalers. The patient also had bilateral upper extremity edema which was nonpitting which resolved after one dose of intravenous Lasix. The patient was instructed to avoid nonsteroidal antiinflammatories, Ibuprofen, Aleve and Naprosyn as an outpatient and to use acetaminophen base products due to recent nephrotoxic chemotherapy given. He is to followup with primary care physician and Dr. Funk within one week of hospital discharge. PHYSICAL EXAMINATION ON DISCHARGE: Vital Signs: Temperature 97.6, pulse 72, respirations 20, blood pressure 142/90, 97% on room air. General: Awake, alert, oriented times three, answering questions appropriately. The patient has no pitting edema. Lungs: Clear to auscultation, wheezing, rales or rhonchi. Heart: S1, S2, sinus rhythm. Abdomen: Soft, nontender, nondistended. Positive bowel sounds. LABORATORY DATA: White count 9.2, hemoglobin 12, hematocrit 38, platelet count 189. Sodium 130, potassium 4, chloride 107, bicarbonate 25, BUN 22, creatinine 1.14, glucose 136. Time spent on discharge: 30 minutes. cc: Fred Funk MD [facility]
== END 2019-04-22 08:55 | disposition home or self-care (01) | DRG 500 ==
LOC: M MS5PR 07:16
PROVIDERS: ADMIT Internal Medicine; ATTEND General Practice
DX: C62.11 Malignant neoplasm of descended right testis (principal); C77.2 Secondary and unspecified malignant neoplasm of intra-abdominal lymph nodes; E83.42 Hypomagnesemia; I10 Essential (primary) hypertension; Z90.79 Acquired absence of other genital organ(s); K59.00 Constipation, unspecified; Z79.899 Other long term (current) drug therapy; Z79.51 Long term (current) use of inhaled steroids; K21.9 Gastro-esophageal reflux disease without esophagitis; E78.5 Hyperlipidemia, unspecified; J45.909 Unspecified asthma, uncomplicated; Z90.49 Acquired absence of other specified parts of digestive tract; Z92.21 Personal history of antineoplastic chemotherapy; R25.1 Tremor, unspecified; R60.0 Localized edema; E87.6 Hypokalemia

== ENCOUNTER 2019-05-08 12:58 | Inpatient (IN) | payer BC, OTHER ==
[~2019-05-08] VITALS: Ht 175.3 cm; Wt 83.9 kg
[~2019-05-08 12:58] MED LIST changes: +D5W/0.45% SODIUM CHLORIDE 1,000 ML IV SCH; +FOSAPREPITANT PERIPHERAL LINE 30 MIN INFUSION IV ONE; +OLANZapine 10 MG PO PO ONE; +ONDANSETRON 4MG/2ML VIAL (J2405) IV ONE; +dexameTHASONE 10 MG IV IV ONE
[2019-05-08] MEDS ORDERED: NS IV ONE ×2 (13:00→14:00)
[2019-05-08] MEDS ORDERED: MANNITOL IV ONE (13:00)
[2019-05-08] MEDS ORDERED: CISPLATIN IV ONE (13:00)
[2019-05-08] MEDS ORDERED: ETOPOSIDE IV ONE (14:00)
[2019-05-15 09:00] VITALS: BP 128/90
[2019-05-15] MEDS: D5W/0.45% SODIUM CHLORIDE 1,000 ML IV SCH ×5 (09:00→21:59)
[2019-05-15] MEDS ORDERED: OLANZapine 10 MG PO PO ONE (12:00)
[2019-05-15] MEDS ORDERED: dexameTHASONE 10 MG IV IV ONE (12:00)
[2019-05-15] MEDS ORDERED: FOSAPREPITANT PERIPHERAL LINE 30 MIN INFUSION IV ONE ×2 (12:00)
[2019-05-15] MEDS ORDERED: ONDANSETRON 4MG/2ML VIAL (J2405) IV ONE (12:00)
[2019-05-15] MEDS ORDERED: MANNITOL IV ONE (13:00)
[2019-05-15] MEDS ORDERED: NS IV ONE ×2 (13:00→15:00)
[2019-05-15] MEDS ORDERED: CISPLATIN IV ONE (13:00)
--- NOTE | 2019-05-15 14:07 | ONC.PHACK ---
CHEMO ADMIN CHECKLIST Order Contains Pt ID: Name, Order on Chemo Order Form?: Yes Order Form Includes ALL: Correct Tx Day, Correct Date, Correct Cycle Number Pt ID on Order form Matches: Pt ID on PHA Label Med on Chemo OrderForm Matches: PHA Label, Med Used for Preparation [facility] May 15, 2019 14:07
[2019-05-15] MEDS ORDERED: ETOPOSIDE IV ONE (15:00)
[2019-05-15 18:20] VITALS: BP 149/73
[2019-05-15] MEDS ORDERED: ALBUTEROL SULFATE 2.5 MG/0.5 ML INH NEB SOLN NEB PRN ×2 (18:30→20:45)
[2019-05-15] MEDS ORDERED: SYMBICORT 160/4.5MCG INHALER 6GM INH PRN (20:45)
[2019-05-15] MEDS: CHOLESTYRAMINE 4 GM PWD PKT PO SCH (21:00)
[2019-05-15] MEDS ORDERED: ENTER DRUG NAME HERE (PATIENT'S OWN MED) TD SCH (21:00)
[2019-05-15 22:00] VITALS: BP 139/74
--- NOTE | 2019-05-15 22:15 | HPEPDOC ---
General Date of Admission May 15, 2019 at 13:28 Date of Service: May 15, 2019 Attending Physician: HOLLI BOSS DO Chief Complaint The patient is a 48-year-old male admitted with a reason for visit of Inpatient Fluids W/Chemo. Source: Patient History of Present Illness Rhys is a very pleasant 48-year-old male who is being admitted for inpatient chemotherapy and IV fluids per recommendations from oncology. He has a history of seminoma, stage II B. His symptoms started in December 2017, with fatigue and low energy. Testosterone testing revealed depressed levels and he began exogenous testosterone replacement therapy which improved his symptoms. In late summer 2018, he noticed enlargement of the right testicle and a mass measuring about 4.5 cm on ultrasound was found. He underwent a right radical orchiectomy in February [address] Calderon of urology. On a subsequent CT scan, he was found to have periaortic and intra-aortic lymphadenopathy and BUN systemic chemotherapy in March 2019. He has been treated with cisplatin and bleomycin (for full details, please refer to Dr. Funk's note), however was found to have petersburg induced acute kidney injury with a creatinine of 1.91 (baseline 1.07- 1.28) at the end of March. Chemotherapy was delayed until May 15, and his creatinine this morning was 1.51. Due to this, he was admitted for inpatient chemotherapy and IV fluid hydration. He reports no symptoms, denies fevers, chills, night sweats. He reports good urination with his IV fluids. Home Medications Scheduled Bisoprolol/Hydrochlorothiazide (Bisoprolol-Hctz 5-6.25 mg Tab) 1 Each Tablet, 1 TAB PO DAILY, (Reported) Cholecalciferol (Vitamin D3) (Vitamin D3) 5,000 Unit Tab.rapdis, 2 TAB PO DAILY, (Reported) Cholestyramine (with Sugar) (Cholestyramine Packet) 4 Gm Powd.pack, 4 GM PO BID, (Reported) Omeprazole (Omeprazole) 40 Mg Capsule.dr, 40 MG PO DAILY, (Reported) Simvastatin (Simvastatin) 20 Mg Tablet, 20 MG PO DAILY, (Reported) Testosterone (Androderm) 4 Mg Patch.td24, 4 MG TD QHS, (Reported) APPLIED TO LEGS Scheduled PRN Albuterol Sulfate (Proair Respiclick) 90 Mcg Aer.pow.ba, 2 PUFF INH Q4HP PRN for shortness of breath, (Reported) Budesonide/Formoterol (Symbicort 160-4.5 Mcg Inhaler) 6 Gm Hfa.aer.ad, 2 PUFF INH BID PRN for BREATHING PROBLEMS, (Reported) Allergies Coded Allergies: No Known Allergies (Unverified , 03/02/19) Past Medical History Medical History Asthma High cholesterol GERD Hypertension Stage II B seminoma status post right radical orchidectomy, currently on chemotherapy Surgical History Right radical orchidectomy February 2019 Dr. Calderon Family History Mother at age 55 from unknown malignancy. Father at age 81 Social History Never smoker. Denies alcohol or illicit drug use. A-FIB/CHADSVASC A-FIB History Current/History of A-Fib/PAF?: No Review of Systems Other systems Constitutional: Denies weight loss, waking, fevers, chills, or night sweats Eyes: Denies visual changes, double vision, blurry vision, floaters, or feeling like a curtain pulled down. Ear nose throat: Denies runny nose, epistaxis, sinus pain, tinnitus, sore throat, or odynophasia Cardiovascular: Denies chest pain, shortness of breath, paroxysmal nocturnal dyspnea, orthopnea, edema, or palpitations. Respiratory: Denies cough, sputum production, wheezes, hemoptysis, or shortness of breath Gastrointestinal: Denies abdominal pain, difficulty swallowing, loss of appetite, nausea, vomiting, diarrhea, constipation, obstipation, hematemesis, hematochezia, melena, or tenesmus Musculoskeletal: Denies joint swelling, decreased range of motion, crepitus, or new arthritis Integumentary: Denies pruritus, rashes, or lesions Neuro: Denies any changes to sight/smell/hearing/taste, seizures, faint, headaches, paresthesias, anesthesias Psychiatric: Denies depression, anxiety, paranoia, anhedonia, or episodes of roma Endocrine: Denies diarrhea, increased appetite, tremor, palpitations, constipation, dry skin, polydipsia, polyuria, polyphagia Hematologic: Denies any anemia, purpura, or petechiae Lymphatic: Denies any new lumps or bumps anywhere Physical Examination General Exam: Positive: Alert, Cooperative, No Acute Distress Eye Exam: Positive: PERRLA, Conjunctiva & lids normal, EOMI, Sclera icteric ENT Exam: Positive: Atraumatic, Mucous membr. moist/pink, Pharynx Normal Neck Exam: Positive: Supple; Negative: JVD, thyromegaly Chest Exam: Positive: Clear to auscultation, Normal air movement; Negative: Rales, Rhonchi, Wheezing Heart Exam: Positive: Rate Normal, Regular Rhythm, Normal S1, Normal S2; Negative: Tachycardic, Gallops, Murmurs, Rubs Abdomen Exam: Positive: Normal bowel sounds, Soft; Negative: Tenderness Extremity Exam: Positive: Normal pulses; Negative: Clubbing, Cyanosis, Edema Skin Exam: Positive: Nl turgor and temperature; Negative: Rash, Breakdown Neuro Exam: Positive: Normal Speech, Strength at 5/5 X4 ext, Sensation Intact, Cranial Nerves 3-12 NL Psych Exam: Positive: Mental status NL, Mood NL Vital Signs Vital Signs Date Time Temp Pulse Resp B/P (MAP) Pulse Ox O2 Delivery O2 Flow Rate FiO2 05/15/19 18:20 97.6 71 16 149/73 (98) 98 Room Air Assessment/Plan Assessment: 48-year-old male with history stage IIB seminoma, admitted for inpatient chemotherapy and IV fluids Plan: 1. Seminoma, stage IIB. Admit for inpatient chemotherapy and IV fluids per Dr. Funk's recommendation. Daily labs with magnesium. Aggressive antiemetics have been ordered. It is recommended that he be kept in the hospital for 24 hours after the last dose of petersburg to avoid additional nephrotoxicity. 2. Low testosterone. Continue with the patient's 4 mg patch transdermally daily 3. Hypertension. Continue with home bisoprolol, hydrochlorothiazide 4. Asthma. Continue with home inhalers and albuterol duo nebs as needed GERD. Continue with omeprazole and cholestyramine 5. Hyperlipidemia. Continue with home simvastatin. 6. DVT prophylaxis. Teds and sequentials. Patient has orders for out of bed as tolerated, and he is able to walk around the floors Disposition: Inpatient as we expect greater than 2 midnights for inpatient chemotherapy IHolli, have independently examined this patient and performed my own physical exam, as well as reviewed the documentation. I have discussed in detail with the resident / student the findings and plan of treatment as documented by the resident / student. I agree with their findings and treatment plan. I will continue to follow the patient during this hospital stay. Plan / VTE VTE Prophylaxis Ordered?: Yes KUSH VELASQUEZ D.O. May 15, 2019 22:15 HOLLI BOSS DO May 16, 2019 02:07
[2019-05-16] MEDS: D5W/0.45% SODIUM CHLORIDE 1,000 ML IV SCH ×7 (01:28→20:54)
[2019-05-16 06:00] VITALS: BP 134/84
[2019-05-16] MEDS ORDERED: HEPARIN SOD (PORCINE) 5000 UNITS/ML VIAL (J1644 PER 1000UNITS) SQ SCH (06:00)
[2019-05-16 06:23] LABS: BASO # 0.1 10^3/uL (0.0-0.2); BASO % 0.3 % (0.0-1.0); HEMATOCRIT 32.8 % (42.0-52.0); HEMOGLOBIN 11.6 g/dl (13.5-17.5); LYMPH # 0.8 10^3/uL (1.5-5.0); LYMPH % 4.2 % (24.0-44.0); MEAN CORPUSCULAR HEMOGLOBIN 30.5 pg (27.0-33.0); MEAN CORPUSCULAR HGB CONC 35.4 g/dl (32.0-36.5); MEAN CORPUSCULAR VOLUME 86.3 fl (80.0-96.0); MONO # 0.7 10^3/uL (0.0-0.8); MONO % 3.5 % (0.0-5.0); NEUTROPHILS # 17.4 10^3/uL (1.5-8.5); NEUTROPHILS % 87.1 % (36.0-66.0); PLATELET COUNT, AUTOMATED 344 10^3/uL (150-450)
[2019-05-16 06:31] LABS: BLOOD UREA NITROGEN 13 MG/DL (7-18); CALCIUM LEVEL 7.9 MG/DL (8.5-10.1); CARBON DIOXIDE LEVEL 23 MEQ/L (21-32); CHLORIDE LEVEL 108 MEQ/L (98-107); CREATININE FOR GFR 1.33 MG/DL (0.70-1.30); GLOMERULAR FILTRATION RATE > 60.0 (>56); GLUCOSE, FASTING 209 MG/DL (70-100); MAGNESIUM LEVEL 1.5 MG/DL (1.8-2.4); PHOSPHORUS LEVEL 1.2 MG/DL (2.5-4.9); SODIUM LEVEL 138 MEQ/L (136-145)
[2019-05-16] MEDS: HYDROCHLOROthiazide 6.25MG PER 1/4TAB PO SCH (08:26)
[2019-05-16] MEDS: OMEPRAZOLE 20 MG CAP PO SCH (08:26)
[2019-05-16] MEDS: SIMVASTATIN 20 MG TAB PO SCH (08:26)
[2019-05-16] MEDS: CHOLESTYRAMINE 4 GM PWD PKT PO SCH (08:28)
[2019-05-16] MEDS: bisoproloL fumarate 5 MG TAB PO SCH (08:28)
[2019-05-16] MEDS: ENOXAPARIN 40 MG/0.4 ML SYRINGE (J1650) SC SCH (08:29)
[2019-05-16] MEDS ORDERED: OLANZapine 10 MG PO PO ONE (11:00)
[2019-05-16] MEDS ORDERED: dexameTHASONE 10 MG IV IV ONE (11:00)
[2019-05-16] MEDS ORDERED: ONDANSETRON 4MG/2ML VIAL (J2405) IV ONE (11:00)
[2019-05-16] MEDS ORDERED: MAG SULF 1GM/100ML (MAG RUN) 1 GM in IV 1 EA IV SCH ×2 (11:30→14:00)
--- NOTE | 2019-05-16 11:30 | IPNPDOC ---
Subjective Date Seen The patient was seen on 05/16/19. Subjective Chief Complaint/HPI Seen and examined, seated in chair at bedside, no specific complaints today. General: Reports: Normal Appetite; Denies: Chills, Night Sweats, Fatigue, Malaise Constitutional: Denies: Chills, Fever, Night Sweats Eyes: Denies: Pain, Vision change ENT: Denies: Head Aches, Ear Pain, Dysphagia Skin: Denies: Rash, Lesions, Breakdown Pulmonary: Denies: Dyspnea, Cough Cardiovascular: Denies: Chest Pain, Palpitations, Orthopnea, Paroxysmal Noc. Dyspnea, Lt Headedness Gastrointestinal: Denies: Nausea, Vomiting, Abdominal Pain, Diarrhea, Constipation Genitourinary: Denies: Dysuria, Frequency, Incontinence, Retention Hematologic: Denies: Bruising, Bleeding Excessively Musculoskeletal: Denies: Neck Pain, Back Pain, Joint Pain, Muscle Pain, Spasms Neurological: Denies: Weakness, Numbness, Change in speech, Confusion Psych: Reports: Mood Normal; Denies: Depression, Memory Issues Objective Physical Examination General Exam: Positive: Alert, Cooperative, No Acute Distress Eye Exam: Positive: PERRLA, Conjunctiva & lids normal, EOMI, Sclera icteric ENT Exam: Positive: Atraumatic, Mucous membr. moist/pink, Pharynx Normal Neck Exam: Positive: Supple; Negative: JVD, thyromegaly Chest Exam: Positive: Clear to auscultation, Normal air movement; Negative: Rales, Rhonchi, Wheezing Heart Exam: Positive: Rate Normal, Regular Rhythm, Normal S1, Normal S2; Negative: Tachycardic, Gallops, Murmurs, Rubs Telemetry: Positive: No significant arrhythmia Abdomen Exam: Positive: Normal bowel sounds, Soft; Negative: Tenderness Male Exam: Positive: Normal Genital Exam Extremity Exam: Positive: Normal pulses; Negative: Clubbing, Cyanosis, Edema Skin Exam: Positive: Nl turgor and temperature; Negative: Rash, Breakdown Neuro Exam: Positive: Normal Speech, Strength at 5/5 X4 ext, Sensation Intact, Cranial Nerves 3-12 NL Psych Exam: Positive: Mental status NL, Mood NL Assessment /Plan Assessment 1. Seminoma, stage IIB - IVF, monitor SCr. - Oncology Dr. Funk following, plan for chemotherapy today. - antiemetics prn. 2. hypomagnesemia - replete, repeat levels. 3. hypertension - continue bisoprolol, HCTZ. 4. hyperlipidemia - continue simvastatin. 5. asthma - continue albuterol prn. 6. GERD - continue omeprazole, cholestyramine. Plan/VTE VTE Prophylaxis Ordered?: Yes VS, I&O, 24H, Fishbone Vital Signs/I&O Vital Signs Date Time Temp Pulse Resp B/P (MAP) Pulse Ox O2 Delivery O2 Flow Rate FiO2 05/16/19 08:28 101 136/82 05/16/19 06:00 98.2 17 94 Room Air I&O- Last 24 Hours up to 6 AM 05/16/19 06:00 Intake Total 7260 ml Output Total 875 ml Balance 6385 ml Laboratory Data 24H LABS Laboratory Tests 2 05/16/19 05:36: Immature Granulocyte % (Auto) 4.9H, Neutrophils (%) (Auto) 87.1H, Lymphocytes (%) (Auto) 4.2L, Monocytes (%) (Auto) 3.5, Eosinophils (%) (Auto) 0.0, Basophils (%) (Auto) 0.3, Neutrophils # (Auto) 17.4H, Lymphocytes # (Auto) 0.8L, Monocytes # (Auto) 0.7, Eosinophils # (Auto) 0.0, Basophils # (Auto) 0.1, Nucleated Red Blood Cells % (auto) 0.0, Anion Gap 7L, Glomerular Filtration Rate > 60.0, Calcium Level 7.9#L, Phosphorus Level 1.2L, Magnesium Level 1.5L CBC/BMP Laboratory Tests 05/16/19 05:36 MART SEVILLA MD May 16, 2019 11:30
--- NOTE | 2019-05-16 11:30 | ONC.PHACK ---
CHEMO ADMIN CHECKLIST Order Contains Pt ID: Name, Order on Chemo Order Form?: Yes Order Form Includes ALL: Correct Tx Day, Correct Date, Correct Cycle Number Pt ID on Order form Matches: Pt ID on PHA Label Med on Chemo OrderForm Matches: PHA Label, Med Used for Preparation [facility] May 16, 2019 11:30
[2019-05-16 11:40] VITALS: BP 133/84
[2019-05-16] MEDS ORDERED: BLEOMYCIN IV ONE (12:00)
[2019-05-16] MEDS ORDERED: NS IV ONE ×3 (12:00→14:10)
[2019-05-16] MEDS ORDERED: MANNITOL IV ONE (12:10)
[2019-05-16] MEDS ORDERED: CISPLATIN IV ONE (12:10)
[2019-05-16] MEDS ORDERED: ETOPOSIDE IV ONE (14:10)
[2019-05-16 16:15] VITALS: BP 159/96
[2019-05-16] MEDS: MAG SULF 1GM/100ML (MAG RUN) 1 GM in IV 1 EA IV SCH ×2 (16:44→17:52)
[2019-05-16] MEDS: TESTOSTERONE 4 MG/24 HR TOP SCH (20:19)
[2019-05-16] MEDS: CHOLESTYRAMINE PO SCH (20:19)
[2019-05-16 22:00] VITALS: BP 145/72
[2019-05-17] MEDS: D5W/0.45% SODIUM CHLORIDE 1,000 ML IV SCH ×8 (00:12→23:06)
[2019-05-17 06:00] VITALS: BP 145/60
[2019-05-17 07:13] LABS: BASO # 0.1 10^3/uL (0.0-0.2); BASO % 0.2 % (0.0-1.0); HEMATOCRIT 30.2 % (42.0-52.0); HEMOGLOBIN 10.5 g/dl (13.5-17.5); LYMPH # 0.8 10^3/uL (1.5-5.0); LYMPH % 3.1 % (24.0-44.0); MEAN CORPUSCULAR HEMOGLOBIN 30.3 pg (27.0-33.0); MEAN CORPUSCULAR HGB CONC 34.8 g/dl (32.0-36.5); MEAN CORPUSCULAR VOLUME 87.3 fl (80.0-96.0); MONO # 1.5 10^3/uL (0.0-0.8); MONO % 6.3 % (0.0-5.0); NEUTROPHILS # 21.5 10^3/uL (1.5-8.5); NEUTROPHILS % 87.9 % (36.0-66.0); PLATELET COUNT, AUTOMATED 325 10^3/uL (150-450); RED BLOOD COUNT 3.46 10^6/uL (4.30-6.10); WHITE BLOOD COUNT 24.4 10^3/uL (4.0-10.0)
[2019-05-17 07:42] LABS: BLOOD UREA NITROGEN 12 MG/DL (7-18); CARBON DIOXIDE LEVEL 22 MEQ/L (21-32); CHLORIDE LEVEL 112 MEQ/L (98-107); CREATININE FOR GFR 1.32 MG/DL (0.70-1.30); GLOMERULAR FILTRATION RATE > 60.0 (>56); GLUCOSE, FASTING 160 MG/DL (70-100); MAGNESIUM LEVEL 1.9 MG/DL (1.8-2.4); PHOSPHORUS LEVEL 2.5 MG/DL (2.5-4.9); SODIUM LEVEL 140 MEQ/L (136-145)
[2019-05-17] MEDS: bisoproloL fumarate 5 MG TAB PO SCH (08:16)
[2019-05-17] MEDS: OMEPRAZOLE 20 MG CAP PO SCH (08:16)
[2019-05-17] MEDS: SIMVASTATIN 20 MG TAB PO SCH (08:16)
[2019-05-17] MEDS: HYDROCHLOROthiazide 6.25MG PER 1/4TAB PO SCH (08:16)
[2019-05-17] MEDS: ENOXAPARIN 40 MG/0.4 ML SYRINGE (J1650) SC SCH (08:17)
[2019-05-17] MEDS: CHOLESTYRAMINE PO SCH ×2 (08:17→20:51)
[2019-05-17 10:23] VITALS: BP 122/79
[2019-05-17] MEDS ORDERED: MEPERIDINE INJ 25 MG/ML VIAL (J2175) IV PRN (11:00)
[2019-05-17] MEDS ORDERED: OLANZapine 10 MG PO PO ONE (11:00)
[2019-05-17] MEDS ORDERED: ONDANSETRON 4MG/2ML VIAL (J2405) IV ONE (11:00)
[2019-05-17] MEDS ORDERED: dexameTHASONE 10 MG IV IV ONE (11:00)
[2019-05-17] MEDS ORDERED: MEPERIDINE INJ 25 MG/ML VIAL (J2175) As Ordered ONE (11:17)
--- NOTE | 2019-05-17 11:19 | IPNPDOC ---
Subjective Date Seen The patient was seen on 05/17/19. Subjective Chief Complaint/HPI seen and examined, no complaints today. General: Reports: Normal Appetite; Denies: Chills, Night Sweats, Fatigue, Malaise Constitutional: Denies: Chills, Fever, Night Sweats Eyes: Denies: Pain, Vision change ENT: Denies: Head Aches, Ear Pain, Dysphagia Skin: Denies: Rash, Lesions, Breakdown Pulmonary: Denies: Dyspnea, Cough Cardiovascular: Denies: Chest Pain, Palpitations, Orthopnea, Paroxysmal Noc. Dyspnea, Lt Headedness Gastrointestinal: Denies: Nausea, Vomiting, Abdominal Pain, Diarrhea, Constipation Genitourinary: Denies: Dysuria, Frequency, Incontinence, Retention Hematologic: Denies: Bruising, Bleeding Excessively Musculoskeletal: Denies: Neck Pain, Back Pain, Joint Pain, Muscle Pain, Spasms Neurological: Denies: Weakness, Numbness, Change in speech, Confusion Psych: Reports: Mood Normal; Denies: Depression, Memory Issues Objective Physical Examination General Exam: Positive: Alert, Cooperative, No Acute Distress Eye Exam: Positive: PERRLA, Conjunctiva & lids normal, EOMI, Sclera icteric ENT Exam: Positive: Atraumatic, Mucous membr. moist/pink, Pharynx Normal Neck Exam: Positive: Supple; Negative: JVD, thyromegaly Chest Exam: Positive: Clear to auscultation, Normal air movement; Negative: Rales, Rhonchi, Wheezing Heart Exam: Positive: Rate Normal, Regular Rhythm, Normal S1, Normal S2; Negative: Tachycardic, Gallops, Murmurs, Rubs Telemetry: Positive: No significant arrhythmia Abdomen Exam: Positive: Normal bowel sounds, Soft; Negative: Tenderness Male Exam: Positive: Normal Genital Exam Extremity Exam: Positive: Normal pulses; Negative: Clubbing, Cyanosis, Edema Skin Exam: Positive: Nl turgor and temperature; Negative: Rash, Breakdown Neuro Exam: Positive: Normal Speech, Strength at 5/5 X4 ext, Sensation Intact, Cranial Nerves 3-12 NL Psych Exam: Positive: Mental status NL, Mood NL Assessment /Plan Assessment 1. Seminoma, stage IIB - IVF, monitor SCr. - chemotherapy daily as per oncology. - antiemetics prn. 2. hypomagnesemia - resolved, monitor. 3. hypertension - continue bisoprolol, HCTZ. 4. hyperlipidemia - continue simvastatin. 5. asthma - continue albuterol prn. 6. GERD - continue omeprazole, cholestyramine. Plan/VTE VTE Prophylaxis Ordered?: Yes VS, I&O, 24H, Fishbone Vital Signs/I&O Vital Signs Date Time Temp Pulse Resp B/P (MAP) Pulse Ox O2 Delivery O2 Flow Rate FiO2 05/17/19 10:23 97.0 62 14 122/79 (93) 97 Room Air I&O- Last 24 Hours up to 6 AM 05/17/19 06:00 Intake Total 5480 ml Output Total 1925 ml Balance 3555 ml Laboratory Data 24H LABS Laboratory Tests 2 05/17/19 06:42: Immature Granulocyte % (Auto) 2.5, Neutrophils (%) (Auto) 87.9H, Lymphocytes (%) (Auto) 3.1L, Monocytes (%) (Auto) 6.3H, Eosinophils (%) (Auto) 0.0, Basophils ( %) (Auto) 0.2, Neutrophils # (Auto) 21.5H, Lymphocytes # (Auto) 0.8L, Monocytes # (Auto) 1.5H, Eosinophils # (Auto) 0.0, Basophils # (Auto) 0.1, Nucleated Red Blood Cells % (auto) 0.1H, Anion Gap 6L, Glomerular Filtration Rate > 60.0, Calcium Level 8.0L, Phosphorus Level 2.5#, Magnesium Level 1.9 CBC/BMP Laboratory Tests 05/17/19 06:42 MART SEVILLA MD May 17, 2019 11:19
--- NOTE | 2019-05-17 11:52 | ONC.PHACK ---
CHEMO ADMIN CHECKLIST Order Contains Pt ID: Name, Order on Chemo Order Form?: Yes Order Form Includes ALL: Correct Tx Day, Correct Date, Correct Cycle Number Pt ID on Order form Matches: Pt ID on PHA Label Med on Chemo OrderForm Matches: PHA Label, Med Used for Preparation [facility] May 17, 2019 11:52
[2019-05-17] MEDS ORDERED: CISPLATIN IV ONE (12:00)
[2019-05-17] MEDS ORDERED: MANNITOL IV ONE (12:00)
[2019-05-17] MEDS ORDERED: NS IV ONE ×2 (12:00→14:00)
[2019-05-17] MEDS ORDERED: ETOPOSIDE IV ONE (14:00)
[2019-05-17] MEDS: TESTOSTERONE 4 MG/24 HR TOP SCH (20:50)
[2019-05-17 22:00] VITALS: BP_SYST 120; BP_SYST 148; BP_DIAS 70; BP_DIAS 89
[2019-05-18] MEDS: D5W/0.45% SODIUM CHLORIDE 1,000 ML IV SCH ×6 (02:15→20:52)
[2019-05-18 06:00] VITALS: BP 131/87
[2019-05-18 06:50] LABS: HEMATOCRIT 29.1 % (42.0-52.0); HEMOGLOBIN 9.9 g/dl (13.5-17.5); LYMPH # 0.6 10^3/uL (1.5-5.0); LYMPH % 4.4 % (24.0-44.0); MEAN CORPUSCULAR HEMOGLOBIN 30.1 pg (27.0-33.0); MEAN CORPUSCULAR VOLUME 88.4 fl (80.0-96.0); MONO # 0.7 10^3/uL (0.0-0.8); MONO % 5.3 % (0.0-5.0); NEUTROPHILS # 11.9 10^3/uL (1.5-8.5); NEUTROPHILS % 88.9 % (36.0-66.0); PLATELET COUNT, AUTOMATED 286 10^3/uL (150-450); RED BLOOD COUNT 3.29 10^6/uL (4.30-6.10); WHITE BLOOD COUNT 13.3 10^3/uL (4.0-10.0)
[2019-05-18 07:10] LABS: CALCIUM LEVEL 7.7 MG/DL (8.5-10.1); CREATININE FOR GFR 1.36 MG/DL (0.70-1.30); GLOMERULAR FILTRATION RATE 59.1 (>56); MAGNESIUM LEVEL 1.5 MG/DL (1.8-2.4); PHOSPHORUS LEVEL 2.6 MG/DL (2.5-4.9); POTASSIUM SERUM 4.3 MEQ/L (3.5-5.1)
[2019-05-18] MEDS: SIMVASTATIN 20 MG TAB PO SCH (08:09)
[2019-05-18] MEDS: MAG SULF 1GM/100ML (MAG RUN) 1 GM in IV 1 EA IV SCH ×2 (08:09→09:16)
[2019-05-18] MEDS: OMEPRAZOLE 20 MG CAP PO SCH (08:09)
[2019-05-18] MEDS: CHOLESTYRAMINE PO SCH ×2 (08:10→21:02)
[2019-05-18] MEDS: HYDROCHLOROthiazide 6.25MG PER 1/4TAB PO SCH (08:10)
[2019-05-18] MEDS: bisoproloL fumarate 5 MG TAB PO SCH (08:10)
[2019-05-18] MEDS: ENOXAPARIN 40 MG/0.4 ML SYRINGE (J1650) SC SCH (08:11)
[2019-05-18] MEDS ORDERED: FOSAPREPITANT PERIPHERAL LINE 30 MIN INFUSION (PREMIX) IV ONE ×2 (11:00)
[2019-05-18] MEDS ORDERED: dexameTHASONE 10 MG IV IV ONE (11:00)
[2019-05-18] MEDS ORDERED: ONDANSETRON 4MG/2ML VIAL (J2405) IV ONE (11:00)
[2019-05-18] MEDS ORDERED: OLANZapine 10 MG PO PO ONE (11:00)
[2019-05-18] MEDS ORDERED: FOSAPREPITANT PERIPHERAL LINE 30 MIN INFUSION IV ONE ×2 (11:30)
[2019-05-18 11:45] VITALS: BP 153/87
--- NOTE | 2019-05-18 11:49 | ONC.PHACK ---
CHEMO ADMIN CHECKLIST Order Contains Pt ID: Name, Order on Chemo Order Form?: Yes Order Form Includes ALL: Correct Tx Day, Correct Date, Correct Cycle Number Pt ID on Order form Matches: Pt ID on PHA Label Med on Chemo OrderForm Matches: PHA Label, Med Used for Preparation [facility] May 18, 2019 11:49
[2019-05-18] MEDS ORDERED: CISPLATIN IV ONE (12:00)
[2019-05-18] MEDS ORDERED: MANNITOL IV ONE (12:00)
[2019-05-18] MEDS ORDERED: NS IV ONE ×2 (12:00→14:00)
--- NOTE | 2019-05-18 12:31 | IPNPDOC ---
Subjective Date Seen The patient was seen on 05/18/19. Subjective Chief Complaint/HPI seen and examined at bedside, no specific complaints. General: Reports: Normal Appetite; Denies: Chills, Night Sweats, Fatigue, Malaise Constitutional: Denies: Chills, Fever, Night Sweats Eyes: Denies: Pain, Vision change ENT: Denies: Head Aches, Ear Pain, Dysphagia Skin: Denies: Rash, Lesions, Breakdown Pulmonary: Denies: Dyspnea, Cough Cardiovascular: Denies: Chest Pain, Palpitations, Orthopnea, Paroxysmal Noc. Dyspnea, Lt Headedness Gastrointestinal: Denies: Nausea, Vomiting, Abdominal Pain, Diarrhea, Constipation Genitourinary: Denies: Dysuria, Frequency, Incontinence, Retention Hematologic: Denies: Bruising, Bleeding Excessively Musculoskeletal: Denies: Neck Pain, Back Pain, Joint Pain, Muscle Pain, Spasms Neurological: Denies: Weakness, Numbness, Change in speech, Confusion Psych: Reports: Mood Normal; Denies: Depression, Memory Issues Objective Physical Examination General Exam: Positive: Alert, Cooperative, No Acute Distress Eye Exam: Positive: PERRLA, Conjunctiva & lids normal, EOMI, Sclera icteric ENT Exam: Positive: Atraumatic, Mucous membr. moist/pink, Pharynx Normal Neck Exam: Positive: Supple; Negative: JVD, thyromegaly Chest Exam: Positive: Clear to auscultation, Normal air movement; Negative: Rales, Rhonchi, Wheezing Heart Exam: Positive: Rate Normal, Regular Rhythm, Normal S1, Normal S2; Negative: Tachycardic, Gallops, Murmurs, Rubs Telemetry: Positive: No significant arrhythmia Abdomen Exam: Positive: Normal bowel sounds, Soft; Negative: Tenderness Male Exam: Positive: Normal Genital Exam Extremity Exam: Positive: Normal pulses; Negative: Clubbing, Cyanosis, Edema Skin Exam: Positive: Nl turgor and temperature; Negative: Rash, Breakdown Neuro Exam: Positive: Normal Speech, Strength at 5/5 X4 ext, Sensation Intact, Cranial Nerves 3-12 NL Psych Exam: Positive: Mental status NL, Mood NL Assessment /Plan Assessment 1. Seminoma, stage IIB - IVF, monitor SCr. - chemotherapy daily as per oncology. - antiemetics prn. 2. hypomagnesemia - replete as needed. 3. hypertension - continue bisoprolol, HCTZ. 4. hyperlipidemia - continue simvastatin. 5. asthma - continue albuterol prn. 6. GERD - continue omeprazole, cholestyramine. Plan/VTE VTE Prophylaxis Ordered?: Yes VS, I&O, 24H, Fishbone Vital Signs/I&O Vital Signs Date Time Temp Pulse Resp B/P (MAP) Pulse Ox O2 Delivery O2 Flow Rate FiO2 05/18/19 11:45 98.3 69 18 153/87 (109) 97 Room Air l I&O- Last 24 Hours up to 6 AM 05/18/19 05:59 Intake Total 7336.75 ml Output Total 600 ml Balance 6736.75 ml Laboratory Data 24H LABS Laboratory Tests 2 05/18/19 06:22: Immature Granulocyte % (Auto) 1.4, Neutrophils (%) (Auto) 88.9H, Lymphocytes (%) (Auto) 4.4L, Monocytes (%) (Auto) 5.3H, Eosinophils (%) (Auto) 0.0, Basophils (%) (Auto) 0.0, Neutrophils # (Auto) 11.9H, Lymphocytes # (Auto) 0.6L, Monocytes # (Auto) 0.7, Eosinophils # (Auto) 0.0, Basophils # (Auto) 0.0, Nucleated Red Blood Cells % (auto) 0.0, Anion Gap 6L, Glomerular Filtration Rate 59.1, Calcium Level 7.7L, Phosphorus Level 2.6, Magnesium Level 1.5L CBC/BMP Laboratory Tests 05/18/19 06:22 MART SEVILLA MD May 18, 2019 12:31
[2019-05-18] MEDS ORDERED: ETOPOSIDE IV ONE (14:00)
[2019-05-18 16:45] VITALS: BP 141/85
[2019-05-18] MEDS: TESTOSTERONE 4 MG/24 HR TOP SCH (21:04)
[2019-05-18 22:00] VITALS: BP 141/86
[2019-05-19] MEDS: D5W/0.45% SODIUM CHLORIDE 1,000 ML IV SCH ×5 (00:16→13:35)
[2019-05-19 06:00] VITALS: BP 153/101
[2019-05-19 07:25] LABS: BASO % 0.1 % (0.0-1.0); HEMATOCRIT 32.4 % (42.0-52.0); HEMOGLOBIN 11.3 g/dl (13.5-17.5); LYMPH # 0.6 10^3/uL (1.5-5.0); LYMPH % 5.8 % (24.0-44.0); MEAN CORPUSCULAR HEMOGLOBIN 30.5 pg (27.0-33.0); MEAN CORPUSCULAR HGB CONC 34.9 g/dl (32.0-36.5); MEAN CORPUSCULAR VOLUME 87.6 fl (80.0-96.0); MONO # 0.3 10^3/uL (0.0-0.8); MONO % 2.6 % (0.0-5.0); NEUTROPHILS # 9.5 10^3/uL (1.5-8.5); NEUTROPHILS % 90.5 % (36.0-66.0); PLATELET COUNT, AUTOMATED 304 10^3/uL (150-450); WHITE BLOOD COUNT 10.5 10^3/uL (4.0-10.0)
[2019-05-19 07:59] LABS: CALCIUM LEVEL 8.3 MG/DL (8.5-10.1); CREATININE FOR GFR 1.4 MG/DL (0.70-1.30); GLOMERULAR FILTRATION RATE 57.1 (>56); MAGNESIUM LEVEL 1.6 MG/DL (1.8-2.4); PHOSPHORUS LEVEL 3.1 MG/DL (2.5-4.9); POTASSIUM SERUM 4.4 MEQ/L (3.5-5.1)
[2019-05-19] MEDS: ENOXAPARIN 40 MG/0.4 ML SYRINGE (J1650) SC SCH (09:00)
[2019-05-19] MEDS: SIMVASTATIN 20 MG TAB PO SCH (09:32)
[2019-05-19] MEDS: OMEPRAZOLE 20 MG CAP PO SCH (09:32)
[2019-05-19] MEDS: CHOLESTYRAMINE PO SCH ×2 (09:32→21:59)
[2019-05-19] MEDS: HYDROCHLOROthiazide 6.25MG PER 1/4TAB PO SCH (09:32)
[2019-05-19] MEDS: bisoproloL fumarate 5 MG TAB PO SCH (09:36)
--- NOTE | 2019-05-19 10:02 | IPNPDOC ---
Subjective Date Seen The patient was seen on 05/19/19. Subjective Chief Complaint/HPI Seen and examined at bedside, no specific complaints. General: Reports: Normal Appetite; Denies: Chills, Night Sweats, Fatigue, Malaise Constitutional: Denies: Chills, Fever, Night Sweats Eyes: Denies: Pain, Vision change ENT: Denies: Head Aches, Ear Pain, Dysphagia Skin: Denies: Rash, Lesions, Breakdown Pulmonary: Denies: Dyspnea, Cough Cardiovascular: Denies: Chest Pain, Palpitations, Orthopnea, Paroxysmal Noc. Dyspnea, Lt Headedness Gastrointestinal: Denies: Nausea, Vomiting, Abdominal Pain, Diarrhea, Constipation Genitourinary: Denies: Dysuria, Frequency, Incontinence, Retention Hematologic: Denies: Bruising, Bleeding Excessively Musculoskeletal: Denies: Neck Pain, Back Pain, Joint Pain, Muscle Pain, Spasms Neurological: Denies: Weakness, Numbness, Change in speech, Confusion Psych: Reports: Mood Normal; Denies: Depression, Memory Issues Objective Physical Examination General Exam: Positive: Alert, Cooperative, No Acute Distress Eye Exam: Positive: PERRLA, Conjunctiva & lids normal, EOMI, Sclera icteric ENT Exam: Positive: Atraumatic, Mucous membr. moist/pink, Pharynx Normal Neck Exam: Positive: Supple; Negative: JVD, thyromegaly Chest Exam: Positive: Clear to auscultation, Normal air movement; Negative: Rales, Rhonchi, Wheezing Heart Exam: Positive: Rate Normal, Regular Rhythm, Normal S1, Normal S2; Negative: Tachycardic, Gallops, Murmurs, Rubs Telemetry: Positive: No significant arrhythmia Abdomen Exam: Positive: Normal bowel sounds, Soft; Negative: Tenderness Male Exam: Positive: Normal Genital Exam Extremity Exam: Positive: Normal pulses; Negative: Clubbing, Cyanosis, Edema Skin Exam: Positive: Nl turgor and temperature; Negative: Rash, Breakdown Neuro Exam: Positive: Normal Speech, Strength at 5/5 X4 ext, Sensation Intact, Cranial Nerves 3-12 NL Psych Exam: Positive: Mental status NL, Mood NL Assessment /Plan Assessment 1. Seminoma, stage IIB - IVF, monitor SCr. - chemotherapy daily as per oncology. - antiemetics prn. 2. hypomagnesemia - replete as needed. 3. hypertension - continue bisoprolol, HCTZ. 4. hyperlipidemia - continue simvastatin. 5. asthma - continue albuterol prn. 6. GERD - continue omeprazole, cholestyramine. Plan/VTE VTE Prophylaxis Ordered?: Yes VS, I&O, 24H, Fishbone Vital Signs/I&O Vital Signs Date Time Temp Pulse Resp B/P (MAP) Pulse Ox O2 Delivery O2 Flow Rate FiO2 05/19/19 09:36 92 146/88 05/19/19 06:00 98.6 18 96 Room Air I&O- Last 24 Hours up to 6 AM 05/19/19 06:00 Intake Total 2589.8 ml Output Total 1850 ml Balance 739.8 ml Laboratory Data 24H LABS Laboratory Tests 2 05/19/19 07:09: Immature Granulocyte % (Auto) 1.0, Neutrophils (%) (Auto) 90.5H, Lymphocytes (%) (Auto) 5.8L, Monocytes (%) (Auto) 2.6, Eosinophils (%) (Auto) 0.0, Basophils (%) (Auto) 0.1, Neutrophils # (Auto) 9.5H, Lymphocytes # (Auto) 0.6L, Monocytes # (Auto) 0.3, Eosinophils # (Auto) 0.0, Basophils # (Auto) 0.0, Nucleated Red Blood Cells % (auto) 0.0, Anion Gap 4L, Glomerular Filtration Rate 57.1, Calcium Level 8.3L, Phosphorus Level 3.1, Magnesium Level 1.6L CBC/BMP Laboratory Tests 05/19/19 07:09 MART SEVILLA MD May 19, 2019 10:02
[2019-05-19] MEDS ORDERED: dexameTHASONE 10 MG IV IV ONE (11:30)
[2019-05-19] MEDS ORDERED: ONDANSETRON 4MG/2ML VIAL (J2405) IV ONE (11:30)
[2019-05-19] MEDS ORDERED: MEPERIDINE INJ 25 MG/ML VIAL (J2175) IV PRN (11:30)
[2019-05-19] MEDS ORDERED: OLANZapine 10 MG PO PO ONE (11:30)
[2019-05-19] MEDS ORDERED: MEPERIDINE INJ 25 MG/ML VIAL (J2175) As Ordered ONE (11:53)
--- NOTE | 2019-05-19 12:07 | ONC.PHACK ---
CHEMO ADMIN CHECKLIST Order Contains Pt ID: Name, Order on Chemo Order Form?: Yes Order Form Includes ALL: Correct Tx Day, Correct Date, Correct Cycle Number Pt ID on Order form Matches: Pt ID on PHA Label Med on Chemo OrderForm Matches: PHA Label, Med Used for Preparation [facility] May 19, 2019 12:07
[2019-05-19] MEDS ORDERED: MANNITOL IV ONE (12:30)
[2019-05-19] MEDS ORDERED: CISPLATIN IV ONE (12:30)
[2019-05-19] MEDS ORDERED: NS IV ONE ×2 (12:30→14:30)
[2019-05-19] MEDS ORDERED: ETOPOSIDE IV ONE (14:30)
[2019-05-19 16:36] VITALS: BP 149/94
[2019-05-19] MEDS: MAG SULF 1GM/100ML (MAG RUN) 1 GM in IV 1 EA IV SCH ×2 (16:44→17:55)
[2019-05-19] MEDS: NS 1,000 ML IV SCH ×3 (16:49→23:12)
[2019-05-19] MEDS: TESTOSTERONE 4 MG/24 HR TOP SCH (21:59)
[2019-05-19 22:00] VITALS: BP 147/93
[2019-05-20] MEDS: NS 1,000 ML IV SCH ×3 (03:29→10:17)
[2019-05-20 06:00] VITALS: BP 140/91
[2019-05-20 07:32] LABS: HEMATOCRIT 30.6 % (42.0-52.0); HEMOGLOBIN 10.9 g/dl (13.5-17.5); LYMPH # 0.5 10^3/uL (1.5-5.0); LYMPH % 5.4 % (24.0-44.0); MEAN CORPUSCULAR HEMOGLOBIN 30.9 pg (27.0-33.0); MEAN CORPUSCULAR HGB CONC 35.6 g/dl (32.0-36.5); MEAN CORPUSCULAR VOLUME 86.7 fl (80.0-96.0); MONO # 0.1 10^3/uL (0.0-0.8); MONO % 1.6 % (0.0-5.0); NEUTROPHILS % 91.9 % (36.0-66.0); PLATELET COUNT, AUTOMATED 296 10^3/uL (150-450); RED BLOOD COUNT 3.53 10^6/uL (4.30-6.10); WHITE BLOOD COUNT 8.7 10^3/uL (4.0-10.0)
[2019-05-20 07:52] LABS: CALCIUM LEVEL 7.9 MG/DL (8.5-10.1); CREATININE FOR GFR 1.42 MG/DL (0.70-1.30); GLOMERULAR FILTRATION RATE 56.2 (>56); MAGNESIUM LEVEL 1.6 MG/DL (1.8-2.4); PHOSPHORUS LEVEL 3.6 MG/DL (2.5-4.9); POTASSIUM SERUM 4.7 MEQ/L (3.5-5.1)
[2019-05-20] MEDS: ENOXAPARIN 40 MG/0.4 ML SYRINGE (J1650) SC SCH (09:00)
[2019-05-20] MEDS: CHOLESTYRAMINE PO SCH (09:37)
[2019-05-20 09:38] VITALS: BP 140/91
[2019-05-20] MEDS: bisoproloL fumarate 5 MG TAB PO SCH (09:38)
[2019-05-20] MEDS: OMEPRAZOLE 20 MG CAP PO SCH (09:39)
[2019-05-20] MEDS: SIMVASTATIN 20 MG TAB PO SCH (09:39)
--- NOTE | 2019-05-20 14:47 | DS.PDOC ---
Discharge Summary General Date of Admission May 15, 2019 at 13:28 Date of Discharge 05/20/19 Discharge Summary PROCEDURES PERFORMED DURING STAY: [None]. ADMITTING DIAGNOSES: 1. Seminoma, stage IIB, inpatient fluids w/chemotherapy DISCHARGE DIAGNOSES: 1. Seminoma, stage IIB, inpatient fluids w/chemotherapy COMPLICATIONS/CHIEF COMPLAINT: Inpatient Fluids W/Chemo. HISTORY OF PRESENT ILLNESS: Please refer to for detailed HPI. HOSPITAL COURSE: Patient was admitted and treated for the following conditions: 1. Seminoma, stage IIB - admitted for IVF while on daily chemotherapy. - chemotherapy daily as per oncology. - antiemetics prn. - patient completed last course on 05/19, stable for discharge home today. DISCHARGE MEDICATIONS: Please see below. ALLERGIES: Please see below. PHYSICAL EXAMINATION ON DISCHARGE: VITAL SIGNS: Please see below. GENERAL: AAO x 3, NAD. HEENT: NCAT, anicteric sclera, PERRLA/EOMI NECK: supple, no JVD, no thyromegaly CARDIOVASCULAR EXAMINATION: NS1S2, regular, no murmurs/rubs RESPIRATORY EXAMINATION: CTA b/l, no wheezing, rales, rhonchi. ABDOMINAL EXAMINATION: NT/ND, positive bowel sounds, no masses EXTREMITIES: no cyanosis, clubbing, edema SKIN: warm, no rashes, NEUROLOGICAL EXAMINATION: AAO x 3, no motor/sensory deficits, PSYCHIATRIC EXAMINATION: calm, cooperative, normal affect. LABORATORY DATA: Please see below. PROGNOSIS: good ACTIVITY: [As tolerated]. DIET: regular DISPOSITION: 01 Home, Self-Care. DISCHARGE INSTRUCTIONS: 1. please follow up with oncology Dr. Funk. ITEMS TO FOLLOWUP ON ON OUTPATIENT: 1. none DISCHARGE CONDITION: [Stable]. TIME SPENT ON DISCHARGE: Greater than [30] minutes. Vital Signs/I&Os Vital Signs Date Time Temp Pulse Resp B/P (MAP) Pulse Ox O2 Delivery O2 Flow Rate FiO2 05/20/19 09:38 97 140/91 05/20/19 06:00 99.0 20 97 Room Air I&O- Last 24 Hours up to 6 AM 05/20/19 06:00 Intake Total 54483 ml Output Total 540 ml Balance 9486 ml Laboratory Data Labs 24H Laboratory Tests 2 05/20/19 07:17: Immature Granulocyte % (Auto) 1.1, Neutrophils (%) (Auto) 91.9H, Lymphocytes (%) (Auto) 5.4L, Monocytes (%) (Auto) 1.6, Eosinophils (%) (Auto) 0.0, Basophils (%) (Auto) 0.0, Neutrophils # (Auto) 8.0, Lymphocytes # (Auto) 0.5L, Monocytes # (Auto) 0.1, Eosinophils # (Auto) 0.0, Basophils # (Auto) 0.0, Nucleated Red Blood Cells % (auto) 0.0, Anion Gap 8, Glomerular Filtration Rate 56.2, Calcium Level 7.9L, Phosphorus Level 3.6, Magnesium Level 1.6L CBC/BMP Laboratory Tests 05/20/19 07:17 Discharge Medications Scheduled Bisoprolol/Hydrochlorothiazide (Bisoprolol-Hctz 5-6.25 mg Tab) 1 Each Tablet, 1 TAB PO DAILY, (Reported) Cholecalciferol (Vitamin D3) (Vitamin D3) 5,000 Unit Tab.rapdis, 2 TAB PO DAILY, (Reported) Cholestyramine (with Sugar) (Cholestyramine Packet) 4 Gm Powd.pack, 4 GM PO BID, (Reported) Omeprazole (Omeprazole) 40 Mg Capsule.dr, 40 MG PO DAILY, (Reported) Simvastatin (Simvastatin) 20 Mg Tablet, 20 MG PO DAILY, (Reported) Testosterone (Androderm) 4 Mg Patch.td24, 4 MG TD QHS, (Reported) APPLIED TO LEGS Scheduled PRN Albuterol Sulfate (Proair Respiclick) 90 Mcg Aer.pow.ba, 2 PUFF INH Q4HP PRN for shortness of breath, (Reported) Budesonide/Formoterol (Symbicort 160-4.5 Mcg Inhaler) 6 Gm Hfa.aer.ad, 2 PUFF INH BID PRN for BREATHING PROBLEMS, (Reported) Allergies Coded Allergies: No Known Allergies (Unverified , 03/02/19) MART SEVILLA MD May 20, 2019 14:47
== END 2019-05-20 12:23 | disposition home or self-care (01) | DRG 696 ==
LOC: M MSPAV 05-15 13:28
PROVIDERS: ADMIT Internal Medicine Nephrology; ATTEND Internal Medicine
DX: Z51.11 Encounter for antineoplastic chemotherapy (principal); I10 Essential (primary) hypertension; C62.91 Malignant neoplasm of right testis, unspecified whether descended or undescended; J45.909 Unspecified asthma, uncomplicated; K21.9 Gastro-esophageal reflux disease without esophagitis; Z90.79 Acquired absence of other genital organ(s); Z79.51 Long term (current) use of inhaled steroids; Z79.899 Other long term (current) drug therapy; Z92.21 Personal history of antineoplastic chemotherapy; E29.1 Testicular hypofunction

== ENCOUNTER → 2019-05-30 | Outpatient (CLI) | payer BC, OTHER ==
[~2019-05-30] MED LIST changes: -D5W/0.45% SODIUM CHLORIDE 1,000 ML IV SCH; -FOSAPREPITANT PERIPHERAL LINE 30 MIN INFUSION IV ONE; -OLANZapine 10 MG PO PO ONE; -ONDANSETRON 4MG/2ML VIAL (J2405) IV ONE; -dexameTHASONE 10 MG IV IV ONE
--- NOTE | 2019-05-30 14:24 | REP ---
CHEST, TWO VIEWS: There is no evidence of acute infiltrate. No pleural effusion is seen. The heart is normal in size. The mediastinal silhouette is unremarkable. The visualized osseous structures are intact. IMPRESSION: No acute pulmonary disease. Electronically Signed by Ángel Narvaez MD 05/30/2019 07:58 P
--- NOTE | 2019-05-31 08:25 | REP ---
VENTILATION-PERFUSION LUNG SCAN: HISTORY: Shortness of breath. Elevated D-dimer. Comparison is made with today's chest x-ray: TECHNIQUE: 1.0 mCi technetium 99m DTPA aerosol is given for the ventilation study. This is followed by 5.5 mCi intravenous dose of technetium-99m MAA for the perfusion exam. A series of eight planar images are acquired for each portion of the exam. SCINTIGRAPHIC FINDINGS: There is normal homogeneous ventilation and perfusion uptake bilaterally in the lung golden. There is no evidence to suggest pulmonary embolus. IMPRESSION: Normal VQ lung scan. No evidence of pulmonary embolus. Electronically Signed by Akash Rojas MD 05/31/2019 02:00 P
== END ==
LOC: M RAD 12:56
PROVIDERS: ATTEND Internal Medicine Hematology
DX: R06.00 Dyspnea, unspecified (principal)

== ENCOUNTER → 2019-06-02 | Outpatient (CLI) | payer BC, OTHER ==
--- NOTE | 2019-06-02 10:31 | PFTRPT ---
Site: [facility], [address] [address], [id number] ID: [id number] Name: VALERIO RASHEED Visit Date: 06/02/2019 Second ID: [id number] Referring Doctor: Fred Funk M.D. Reviewing Doctor: Luc Hernandez MD Magazine Writer: Sparkle SAMUELS RRT Age: 48 : 1970 Sex: Male Race: Height: 69.00 Inches Weight: 145.00 Lbs BSA: 1.80 Order IDs: [id number] Requested Test(s): <RESP-PFT.PFT B/A> Diagnosis: DYSPNEA test meet the ATS standards for acceptability and repeatability. Pt was given four puffs of albuterol for postbronchodilator. Review Status: Not Reviewed Pre-Bronch Post-Bronch Pred Actual %Pred Actual %Chng SPIROMETRY FVC (L) 4.88 3.20 65 3.46 7 FEV1 (L) 3.78 2.43 64 2.74 12 FEV1/FVC (%) 78 76 97 79 4 FEF 25% (L/sec) 7.00 4.18 59 6.30 50 FEF 50% (L/sec) 4.37 2.22 50 2.74 23 FEF 75% (L/sec) 1.50 0.74 49 1.53 106 FEF 25-75% (L/sec) 3.35 1.96 58 2.77 41 FEF Max (L/sec) 9.57 6.48 67 6.48 FIVC (L) 3.07 3.29 7 FIF 50% (L/sec) 4.96 2.26 45 1.25 -44 FIF Max (L/sec) 2.82 2.17 -23 MVV (L/min) 149 88 59 Expiratory Time (sec) 5.89 7.04 19 Back Extrap Vol (L) 0.05 0.09 81 Time To FEFmax (sec) 0.059 0.095 62 LUNG VOLUMES SVC (L) 4.77 3.44 72 IC (L) 3.32 2.27 68 ERV (L) 1.45 1.16 80 TGV (L) 3.44 3.65 106 RV (Pleth) (L) 1.99 2.48 124 TLC (Pleth) (L) 6.76 5.92 87 RV/TLC (Pleth) (%) 30 42 139 DIFFUSION DLCOunc (ml/min/mmHg) 30.17 15.85 52 DLCOcor (ml/min/mmHg) 30.17 17.33 57 DL/VA (ml/min/mmHg/L) 4.46 3.97 88 VA (L) 6.76 4.37 64 BHT (sec) 11.11 IVC (L) 3.03 TLC (SB) (L) 4.52 AIRWAYS RESISTANCE Raw (cmH2O/L/s) 1.45 1.46 100 Gaw (L/s/cmH2O) 1.03 0.69 66 sRaw (cmH2O*s) 4.76 5.61 117 sGaw (1/cmH2O*s) 0.20 0.18 89 BLOOD GASES Hgb (gm/dL) 11.9
== END ==
LOC: M CARPUL 10:00
PROVIDERS: ATTEND Internal Medicine Hematology
DX: R06.00 Dyspnea, unspecified (principal)

== ENCOUNTER 2019-06-09 11:21 | Outpatient (CLI) | payer BC, OTHER ==
[~2019-06-09] VITALS: Ht 175.3 cm; Wt 66.8 kg
[~2019-06-09 11:21] MED LIST changes: +POTA1TAB14 PO
[2019-06-09] MEDS ORDERED: KCL 10MEQ IN D5/0.45NS 1000ML 1,000 ML IV SCH ×2 (11:30→11:45)
[2019-06-09 11:40] VITALS: BP 118/75
[2019-06-09 15:00] VITALS: BP 121/72
[2019-06-09 15:32] LABS: CALCIUM LEVEL 8.1 MG/DL (8.5-10.1); CREATININE FOR GFR 1.56 MG/DL (0.70-1.30); GLOMERULAR FILTRATION RATE 50.4 (>56)
== END 2019-06-09 15:00 | disposition home or self-care (01) ==
LOC: M INFU 11:21
PROVIDERS: ATTEND Internal Medicine Hematology
DX: C62.11 Malignant neoplasm of descended right testis (principal)

== ENCOUNTER 2019-06-12 09:51 | Inpatient (IN) | payer BC, OTHER ==
[~2019-06-12] VITALS: Ht 175.3 cm; Wt 75.3 kg
[2019-06-12] MEDS: D5W/0.45% SODIUM CHLORIDE 1,000 ML IV SCH ×2 (08:15→11:20)
[~2019-06-12 09:51] MED LIST changes: +POTASSIUM CHLORIDE 10 MEQ SR TABLET PO ONE
[2019-06-12] MEDS ORDERED: FOSAPREPITANT PERIPHERAL LINE 30 MIN INFUSION IV ONE ×2 (12:30)
[2019-06-12] MEDS ORDERED: ONDANSETRON 4MG/2ML VIAL (J2405) IV ONE (13:00)
[2019-06-12] MEDS ORDERED: dexameTHASONE 10 MG IV IV ONE (13:00)
[2019-06-12] MEDS ORDERED: FOSAPREPITANT PERIPHERAL LINE 30 MIN INFUSION (PREMIX) IV ONE ×2 (13:00)
[2019-06-12] MEDS ORDERED: OLANZapine 10 MG TAB PO ONE (13:00)
[2019-06-12] MEDS ORDERED: NS IV ONE ×2 (14:00→16:00)
[2019-06-12] MEDS ORDERED: CISPLATIN IV ONE (14:00)
[2019-06-12] MEDS ORDERED: MANNITOL IV ONE (14:00)
--- NOTE | 2019-06-12 15:56 | ONC.PHACK ---
CHEMO ADMIN CHECKLIST Order Contains Pt ID: Name, Order on Chemo Order Form?: Yes Order Form Includes ALL: Correct Tx Day, Correct Date, Correct Cycle Number Pt ID on Order form Matches: Pt ID on PHA Label Med on Chemo OrderForm Matches: PHA Label, Med Used for Preparation [facility] Jun 12, 2019 15:56
[2019-06-12] MEDS ORDERED: ETOPOSIDE IV ONE (16:00)
[2019-06-12] MEDS ORDERED: SYMBICORT 160/4.5MCG INHALER 6GM INH PRN (16:15)
[2019-06-12] MEDS ORDERED: ALBUTEROL 90 MCG/ACT 8GM HFA INHALER INH PRN (16:15)
[2019-06-12] MEDS ORDERED: ONDANSETRON 4MG/2ML VIAL (J2405) IV PRN (16:45)
[2019-06-12 18:00] VITALS: BP 140/84
[2019-06-12] MEDS ORDERED: MAG SULF IV SCH ×2 (18:00)
[2019-06-12] MEDS ORDERED: [UNRECOGNIZED DRUG - OTHER] IV SCH ×2 (18:00)
[2019-06-12] MEDS ORDERED: NS 1,000 ML IV SCH (18:00)
[2019-06-12] MEDS ORDERED: ALBU8.5H INH (18:18)
[2019-06-12] MEDS ORDERED: VITAD1000T PO (18:18)
--- NOTE | 2019-06-12 18:59 | HPEPDOC ---
General Date of Admission Jun 12, 2019 at 15:53 Date of Service: Jun 12, 2019 Chief Complaint The patient is a 48-year-old male admitted with a reason for visit of Inpatient Fluids With Chemo. Source: Patient, RN/MD, Old records History of Present Illness This is a 48-year-old male with recent diagnosis of right testicular cancer seminoma type IIB admitted for inpatient chemotherapy with Cisplatin , etoposide and bleomycin and for electrolytes, as well as renal failure monitoring. His symptoms started in December 2017, with fatigue and low energy. Testosterone testing revealed depressed levels and he began exogenous testosterone replac ement therapy which improved his symptoms. In late summer 2018, he noticed enlargement of the right testicle and a mass measuring about 4.5 cm on ultrasound was found. He underwent a right radical orchiectomy in February [address] Calderon of urology. On a subsequent CT scan, he was found to have periaortic and intra-aortic lymphadenopathy and Began systemic chemotherapy in March 2019. He developed [place] based renal injury after the first cycle of chemotherapy. Which worsened due to poor oral intake at home after chemotherapy. So since April he has been getting inpatient chemotherapy with IVF post chemotherapy for 5 days. Patient complains that he has been having nausea and vomiting and abdominal pain for the past 3 weeks. Says every time he eats he has severe sharp abdominal pain after a few bites and then throws up. He has not been able to eat much at all. He has been unable to take oral medications as he throws them up. Denies any diarrhea. Home Medications Scheduled Bisoprolol/Hydrochlorothiazide (Bisoprolol-Hctz 5-6.25 mg Tab) 1 Each Tablet, 1 TAB PO DAILY, (Reported) Cholecalciferol (Vitamin D3) (Vitamin D3) 1,000 Unit Tablet, 2,000 UNITS PO DAILY, (Reported) Cholestyramine (with Sugar) (Cholestyramine Packet) 4 Gm Powd.pack, 4 GM PO BID, (Reported) Omeprazole (Omeprazole) 40 Mg Capsule.dr, 40 MG PO DAILY, (Reported) Simvastatin (Simvastatin) 20 Mg Tablet, 20 MG PO DAILY, (Reported) Testosterone (Androderm) 4 Mg Patch.td24, 4 MG TD DAILY, (Reported) CURRENTLY APPLIED TO RIGHT LOWER LEG Scheduled PRN Albuterol Sulfate (Albuterol Sulfate Hfa) 8.5 Gm Hfa.aer.ad, 2 PUFF INH Q4H PRN for SHORTNESS OF BREATH, (Reported) Budesonide/Formoterol (Symbicort 160-4.5 Mcg Inhaler) 6 Gm Hfa.aer.ad, 2 PUFF INH BID PRN for SHORTNESS OF BREATH, (Reported) Allergies Coded Allergies: No Known Allergies (Unverified , 03/02/19) Past Medical History Medical History Stage II B seminoma status post right radical orchidectomy, currently on chemotherapy DONOVAN Hypokalemia Asthma High cholesterol GERD Hypertension Surgical History Right radical orchidectomy February [address] Calderon Family History Mother at age 55 from unknown malignancy. Father at age 81 from old age Social History * Smoker: Denies Alcohol: Denies Drugs: denies A-FIB/CHADSVASC A-FIB History Current/History of A-Fib/PAF?: No Review of Systems Constitutional: Denies: Chills, Fever, Night Sweats Eyes: Denies: Pain, Vision change ENT: Denies: Head Aches, Ear Pain, Dysphagia Skin: Denies: Rash, Lesions, Breakdown Pulmonary: Denies: Dyspnea, Cough Cardiovascular: Denies: Chest Pain, Palpitations, Orthopnea, Paroxysmal Noc. Dyspnea, Lt Headedness Gastrointestinal: Reports: Nausea, Vomiting, Abdominal Pain; Denies: Diarrhea Genitourinary: Denies: Dysuria, Frequency, Incontinence, Retention Hematologic: Denies: Bruising, Bleeding Excessively Musculoskeletal: Denies: Neck Pain, Back Pain, Joint Pain, Muscle Pain, Spasms Physical Examination General Exam: Positive: Alert, Cooperative, No Acute Distress Eye Exam: Positive: PERRLA, Conjunctiva & lids normal, EOMI; Negative: Sclera icteric ENT Exam: Positive: Atraumatic, Mucous membr. moist/pink, Pharynx Normal Neck Exam: Positive: Supple; Negative: JVD, thyromegaly Chest Exam: Positive: Clear to auscultation, Normal air movement Heart Exam: Positive: Rate Normal, Regular Rhythm, Normal S1, Normal S2; Negative: Murmurs, Rubs Abdomen Exam: Positive: Normal bowel sounds, Soft; Negative: Tenderness, Hepatospenomegaly Extremity Exam: Positive: Normal pulses; Negative: Clubbing, Cyanosis, Edema Skin Exam: Positive: Nl turgor and temperature; Negative: Breakdown, Lesion Vital Signs Vital Signs Patient Temperature 97.8 degrees F 06/12/19 1800 Temperature Source Oral 06/12/19 1800 Pulse 91 06/12/19 1800 Respiratory Rate 16 bpm 06/12/19 1800 Blood Pressure Assessment 140/84 (102) 06/12/19 1800 Bedside Pulse Oximetry 99 % 06/12/19 1800 Item Value Date Time Oxygen Delivery Method Room Air 06/12/19 1800 Assessment/Plan Stage II B seminoma status post right radical orchidectomy, currently on chemotherapy inpatient chemotherapy with cisplatin, etoposide and 1 dose of bleomycin. will continue IVF with K Abdominal pain nausea and vomiting acute gastritis / chemotherapy related will give pantoprazole, zofran and sucralfate DONOVAN continue IVF @ 200 cc/ hour monitor daily labs. Hypokalemia will replace K Hypomagnesemia replaced Asthma continue symbicort and albuterol prn Hyperlipidemia statin GERD PPI Hypertension Plan / VTE VTE Prophylaxis Ordered?: Yes ANDRÉS LA[place] MD Jun 12, 2019 16:30
[2019-06-12] MEDS ORDERED: KCL 40MEQ in NS 1000ML 1,000 ML IV SCH ×2 (19:00→20:00)
[2019-06-12] MEDS ORDERED: MAG SULF 1GM/100ML (MAG RUN) 1 GM in IV 1 EA IV SCH (19:00)
[2019-06-12] MEDS ORDERED: MAG SULF 1GM/100ML (MAG RUN) X 2 DOSES (2GM TOTAL) IV SCH ×2 (20:00)
[2019-06-12] MEDS: NS IV SCH (20:17)
[2019-06-12] MEDS: HEPARIN SOD (PORCINE) 5000 UNITS/ML VIAL (J1644 PER 1000UNITS) SQ SCH ×2 (20:17→20:45)
[2019-06-12] MEDS: MAGNESIUM SULFATE IV SCH (20:17)
[2019-06-12] MEDS: PANTOPRAZOLE 40MG INJ (PROTONIX) (C9113) IV SCH (20:17)
[2019-06-12] MEDS: KCL 20MEQ IN D5/0.45NS 1000ML 1,000 ML IV SCH ×2 (20:30→23:03)
[2019-06-12] MEDS: SUCRALFATE 1 GM TAB PO SCH (20:30)
[2019-06-12] MEDS ORDERED: CHOLESTYRAMINE 4 GM PWD PKT PO SCH (21:00)
[2019-06-12 22:00] VITALS: BP 136/83
[2019-06-13] MEDS: KCL 20MEQ IN D5/0.45NS 1000ML 1,000 ML IV SCH ×6 (04:13→23:03)
[2019-06-13 06:00] VITALS: BP 115/65
[2019-06-13 06:09] LABS: HEMATOCRIT 24.8 % (42.0-52.0); MEAN CORPUSCULAR HEMOGLOBIN 30.4 pg (27.0-33.0); MEAN CORPUSCULAR HGB CONC 34.7 g/dl (32.0-36.5); MEAN CORPUSCULAR VOLUME 87.6 fl (80.0-96.0); PLATELET COUNT, AUTOMATED 242 10^3/uL (150-450); RED BLOOD COUNT 2.83 10^6/uL (4.30-6.10); WHITE BLOOD COUNT 11.8 10^3/uL (4.0-10.0)
[2019-06-13 06:19] LABS: HEMOGLOBIN 8.6 g/dl (13.5-17.5)
[2019-06-13 06:23] LABS: BLOOD UREA NITROGEN 17 MG/DL (7-18); CALCIUM LEVEL 7.5 MG/DL (8.5-10.1); CARBON DIOXIDE LEVEL 24 MEQ/L (21-32); CHLORIDE LEVEL 107 MEQ/L (98-107); CREATININE FOR GFR 1.16 MG/DL (0.70-1.30); GLOMERULAR FILTRATION RATE > 60.0 (>56); GLUCOSE, FASTING 251 MG/DL (70-100); MAGNESIUM LEVEL 2.4 MG/DL (1.8-2.4); POTASSIUM SERUM 4.1 MEQ/L (3.5-5.1); SODIUM LEVEL 137 MEQ/L (136-145)
[2019-06-13 06:29] LABS: LYMPHOCYTES 4 % (16-44); METAMYELOCYTES 1 % (0-0); MONOCYTES 6 % (0-5); MYELOCYTES 2 % (0-0); NEUTROPHILS 87 % (28-66); POIKILOCYTOSIS 1+; POLYCHROMASIA 1+
[2019-06-13 06:31] LABS: PLATELET ESTIMATE NORMAL (NORMAL)
[2019-06-13] MEDS: SUCRALFATE 1 GM TAB PO SCH ×4 (07:30→20:34)
[2019-06-13] MEDS: bisoproloL fumarate 5 MG TAB PO SCH (08:11)
[2019-06-13] MEDS: PANTOPRAZOLE 40MG INJ (PROTONIX) (C9113) IV SCH ×2 (08:12→20:34)
[2019-06-13] MEDS: HEPARIN SOD (PORCINE) 5000 UNITS/ML VIAL (J1644 PER 1000UNITS) SQ SCH ×2 (08:12→19:44)
[2019-06-13] MEDS: SIMVASTATIN 20 MG TAB PO SCH (08:12)
[2019-06-13] MEDS ORDERED: OMEPRAZOLE 20 MG CAP PO SCH (09:00)
--- NOTE | 2019-06-13 09:43 | ONC.PHACK ---
CHEMO ADMIN CHECKLIST Order Contains Pt ID: Name, Order on Chemo Order Form?: Yes Order Form Includes ALL: Correct Tx Day, Correct Date, Correct Cycle Number Pt ID on Order form Matches: Pt ID on PHA Label Med on Chemo OrderForm Matches: PHA Label, Med Used for Preparation [facility] Jun 13, 2019 09:43
[2019-06-13] MEDS ORDERED: OLANZapine 10 MG TAB PO ONE (11:00)
[2019-06-13] MEDS ORDERED: ONDANSETRON 4MG/2ML VIAL (J2405) IV ONE (11:00)
[2019-06-13] MEDS ORDERED: dexameTHASONE 10 MG IV IV ONE (11:00)
[2019-06-13] MEDS ORDERED: NS IV ONE ×3 (12:00→14:10)
[2019-06-13] MEDS ORDERED: BLEOMYCIN SULFATE IV ONE (12:00)
[2019-06-13] MEDS ORDERED: MANNITOL IV ONE (12:10)
[2019-06-13] MEDS ORDERED: CISPLATIN IV ONE (12:10)
[2019-06-13] MEDS ORDERED: ETOPOSIDE IV ONE (14:10)
[2019-06-13 16:00] VITALS: BP 120/81
[2019-06-13] MEDS: MAGNESIUM SULFATE IV SCH (17:05)
[2019-06-13] MEDS: NS IV SCH (17:05)
[2019-06-13] MEDS ORDERED: [UNRECOGNIZED DRUG - OTHER] IV SCH ×2 (18:00)
[2019-06-13] MEDS ORDERED: MAG SULF IV SCH ×2 (18:00)
--- NOTE | 2019-06-13 18:33 | IPNPDOC ---
Subjective Date Seen The patient was seen on 06/13/19. Subjective Chief Complaint/HPI Continues to have nausea, abdominal pain. Did have a little of breakfast was fouzia;seaour and had pain after eating but not throw up. No other issues overnight. Will be going for chemotherapy to the cancer center today. Objective Physical Examination General Exam: Positive: Alert, Cooperative, No Acute Distress Eye Exam: Positive: PERRLA, Conjunctiva & lids normal, EOMI; Negative: Sclera icteric ENT Exam: Positive: Atraumatic, Mucous membr. moist/pink, Pharynx Normal Neck Exam: Positive: Supple; Negative: JVD, thyromegaly Chest Exam: Positive: Clear to auscultation, Normal air movement Heart Exam: Positive: Rate Normal, Regular Rhythm, Normal S1, Normal S2; Negative: Murmurs, Rubs Abdomen Exam: Positive: Normal bowel sounds, Soft; Negative: Tenderness, Hepatospenomegaly Extremity Exam: Positive: Normal pulses; Negative: Clubbing, Cyanosis, Edema Skin Exam: Positive: Nl turgor and temperature; Negative: Breakdown, Lesion Assessment /Plan Assessment This is a 48-year-old male with recent diagnosis of right testicular cancer seminoma type IIB admitted for inpatient chemotherapy with Cisplatin , etoposide and bleomycin and for electrolytes, as well as renal failure monitoring. His symptoms started in December 2017, with fatigue and low energy. Testosterone testing revealed depressed levels and he began exogenous testosterone replacement therapy which improved his symptoms. In late summer 2018, he noticed enlargement of the right testicle and a mass measuring about 4.5 cm on ultrasound was found. He underwent a right radical orchiectomy in February [address] Calderon of urology. On a subsequent CT scan, he was found to have periaortic and intra-aortic lymphadenopathy and Began systemic chemotherapy in March 2019. He developed [place] based renal injury after the first cycle of chemotherapy. Which worsened due to poor oral intake at home after chemotherapy. So since April he has been getting inpatient chemotherapy with IVF post chemo therapy for 5 days. Patient complains that he has been having nausea and vomiting and abdominal pain for the past 3 weeks. Says every time he eats he has severe sharp abdominal pain after a few bites and then throws up. He has not been able to eat much at all. He has been unable to take oral medications as he throws them up. Denies any diarrhea. Stage II B seminoma status post right radical orchidectomy, currently on chemotherapy inpatient chemotherapy with cisplatin, etoposide and 1 dose of bleomycin. continue IVF with K Abdominal pain nausea and vomiting acute gastritis / chemotherapy related pantoprazole, zofran and sucralfate will consult GI for post prandial pain. DONOVAN creatinine normal continue IVF @ 200 cc/ hour monitor daily labs. Hypokalemia corrected Hypomagnesemia replaced Asthma continue symbicort and albuterol prn Hyperlipidemia statin GERD PPI Hypertension on bisoprolol. Plan/VTE VTE Prophylaxis Ordered?: Yes VS, I&O, 24H, Fishbone Vital Signs/I&O Vital Signs Date Time Temp Pulse Resp B/P (MAP) Pulse Ox O2 Delivery O2 Flow Rate FiO2 06/13/19 06:00 97.6 91 18 115/65 (82) 97 06/12/19 18:00 Room Air I&O- Last 24 Hours up to 6 AM 06/13/19 06:00 Intake Total 7133 ml Output Total 850 ml Balance 6283 ml Laboratory Data 24H LABS Laboratory Tests 2 06/13/19 05:20: Immature Granulocyte % (Auto) , Neutrophils (%) (Auto) , Nucleated Red Blood Cells % (auto) 0.2H, Neutrophils 87H, Lymphocytes (Manual) 4L, Monocytes (Manual) 6H, Metamyelocytes 1H, Myelocytes 2H, Polychromasia 1+, Poikilocytosis 1+, Platelet Estimate NORMAL, Anion Gap 6L, Glomerular Filtration Rate > 60.0, Calcium Level 7.5#L, Magnesium Level 2.4 CBC/BMP Laboratory Tests 06/13/19 05:20 ANDRÉS LAKE MD Jun 13, 2019 07:33
[2019-06-13] MEDS ORDERED: MAG SULF 1GM/100ML (MAG RUN) X 2 DOSES (2GM TOTAL) IV SCH ×2 (20:00)
[2019-06-13 22:00] VITALS: BP 118/69
[2019-06-14] MEDS: KCL 20MEQ IN D5/0.45NS 1000ML 1,000 ML IV SCH ×6 (01:30→21:25)
[2019-06-14 06:00] VITALS: BP 117/71
[2019-06-14 06:11] LABS: BASO % 0.1 % (0.0-1.0); HEMATOCRIT 24.1 % (42.0-52.0); HEMOGLOBIN 8.4 g/dl (13.5-17.5); LYMPH # 0.5 10^3/uL (1.5-5.0); LYMPH % 2.4 % (24.0-44.0); MEAN CORPUSCULAR HEMOGLOBIN 30.7 pg (27.0-33.0); MEAN CORPUSCULAR HGB CONC 34.9 g/dl (32.0-36.5); MONO # 1.3 10^3/uL (0.0-0.8); MONO % 6.5 % (0.0-5.0); NEUTROPHILS # 17.4 10^3/uL (1.5-8.5); NEUTROPHILS % 89.5 % (36.0-66.0); PLATELET COUNT, AUTOMATED 245 10^3/uL (150-450); RED BLOOD COUNT 2.74 10^6/uL (4.30-6.10); WHITE BLOOD COUNT 19.4 10^3/uL (4.0-10.0)
[2019-06-14 06:26] LABS: BLOOD UREA NITROGEN 14 MG/DL (7-18); CALCIUM LEVEL 7.6 MG/DL (8.5-10.1); CARBON DIOXIDE LEVEL 23 MEQ/L (21-32); CHLORIDE LEVEL 111 MEQ/L (98-107); CREATININE FOR GFR 1.26 MG/DL (0.70-1.30); GLOMERULAR FILTRATION RATE > 60.0 (>56); GLUCOSE, FASTING 170 MG/DL (70-100); MAGNESIUM LEVEL 2.6 MG/DL (1.8-2.4); POTASSIUM SERUM 3.9 MEQ/L (3.5-5.1); SODIUM LEVEL 139 MEQ/L (136-145)
[2019-06-14] MEDS: SUCRALFATE 1 GM TAB PO SCH ×4 (07:30→20:52)
--- NOTE | 2019-06-14 07:57 | IPNPDOC ---
Subjective Date Seen The patient was seen on 06/14/19. Subjective Chief Complaint/HPI Feels good this morning. no fever or chills, no chest pain or SOB. denies any abdominal pain after dinner last night or breakfast this morning. No nausea or vomiting. Says the left hand feels a little swollen. Having good urine output. Objective Physical Examination General Exam: Positive: Alert, Cooperative, No Acute Distress Eye Exam: Positive: PERRLA, Conjunctiva & lids normal, EOMI; Negative: Sclera icteric ENT Exam: Positive: Atraumatic, Mucous membr. moist/pink, Pharynx Normal Neck Exam: Positive: Supple; Negative: JVD, thyromegaly Chest Exam: Positive: Clear to auscultation, Normal air movement Heart Exam: Positive: Rate Normal, Regular Rhythm, Normal S1, Normal S2; Negative: Murmurs, Rubs Abdomen Exam: Positive: Normal bowel sounds, Soft; Negative: Tenderness, Hepatospenomegaly Extremity Exam: Positive: Normal pulses; Negative: Clubbing, Cyanosis, Edema Skin Exam: Positive: Nl turgor and temperature; Negative: Breakdown, Lesion Assessment /Plan Assessment This is a 48-year-old male with recent diagnosis of right testicular cancer seminoma type IIB admitted for inpatient chemotherapy with Cisplatin , etoposide and bleomycin and for electrolytes, as well as renal failure monitoring. His symptoms started in December 2017, with fatigue and low energy. Testosterone testing revealed depressed levels and he began exogenous testosterone replacement therapy which improved his symptoms. In late summer 2018, he noticed enlargement of the right testicle and a mass measuring about 4.5 cm on ultrasound was found. He underwent a right radical orchiectomy in February [address] Calderon of urology. On a subsequent CT scan, he was found to have periaortic and intra-aortic lymphadenopathy and Began systemic chemotherapy in March 2019. He developed [place] based renal injury after the first cycle of chemotherapy. Which worsened due to poor oral intake at home after chemotherapy. So since April he has been getting inpatient chemotherapy with IVF post chemotherapy for 5 days. Patient complains that he has been having nausea and vomiting and abdominal pain for the past 3 weeks. Says every time he eats he has severe sharp abdominal pain after a few bites and then throws up. He has not been able to eat much at all. He has been unable to take oral medications as he throws them up. Denies any diarrhea. Stage II B seminoma status post right radical orchidectomy, currently on chemotherapy inpatient chemotherapy with cisplatin, etoposide and 1 dose of bleomycin. continue IVF with K Abdominal pain nausea and vomiting improving. Now able to eat all meals with minimal pain. acute gastritis / chemotherapy related pantoprazole, zofran and sucralfate if recurs will consult GI. DONOVAN creatinine normal continue IVF @ 250 cc/ hour monitor daily labs. seems to be getting a little puffy. will monitor for fluid overload. Hypokalemia corrected Hypomagnesemia replaced Protein calorie malnutrition Weight loss of 15 lbs since march int past 2 months with poor oral intake due to chemotherapy and possibly gastritis/ esophagitis. Asthma continue symbicort and albuterol prn Hyperlipidemia statin GERD PPI Hypertension on bisoprolol. Plan/VTE VTE Prophylaxis Ordered?: Yes VS, I&O, 24H, Fishbone Vital Signs/I&O Vital Signs Date Time Temp Pulse Resp B/P (MAP) Pulse Ox O2 Delivery O2 Flow Rate FiO2 06/14/19 06:00 97.7 101 20 117/71 (86) 97 06/12/19 18:00 Room Air I&O- Last 24 Hours up to 6 AM 06/14/19 06:00 Intake Total 6193 ml Output Total 850 ml Balance 5343 ml Laboratory Data 24H LABS Laboratory Tests 2 06/14/19 05:46: Immature Granulocyte % (Auto) 1.5, Neutrophils (%) (Auto) 89.5H, Lymphocytes (%) (Auto) 2.4L, Monocytes (%) (Auto) 6.5H, Eosinophils (%) (Auto) 0.0, Basophils (%) (Auto) 0.1, Neutrophils # (Auto) 17.4H, Lymphocytes # (Auto) 0.5L, Monocytes # (Auto) 1.3H, Eosinophils # (Auto) 0.0, Basophils # (Auto) 0.0, Nucleated Red Blood Cells % (auto) 0.1H, Anion Gap 5L, Glomerular Filtration Rate > 60.0, Erick cium Level 7.6L, Magnesium Level 2.6H CBC/BMP Laboratory Tests 06/14/19 05:46 ANDRÉS LAKE MD Jun 14, 2019 07:57
[2019-06-14] MEDS: SIMVASTATIN 20 MG TAB PO SCH (08:37)
[2019-06-14] MEDS: bisoproloL fumarate 5 MG TAB PO SCH (08:38)
[2019-06-14] MEDS: HEPARIN SOD (PORCINE) 5000 UNITS/ML VIAL (J1644 PER 1000UNITS) SQ SCH ×2 (08:38→20:52)
[2019-06-14] MEDS: OLANZapine 10 MG PO PO ONE ×2 (08:38→10:07)
[2019-06-14] MEDS: PANTOPRAZOLE 40MG INJ (PROTONIX) (C9113) IV SCH ×2 (09:00→20:52)
[2019-06-14] MEDS ORDERED: ONDANSETRON 4MG/2ML VIAL (J2405) IV ONE ×2 (09:00→09:30)
[2019-06-14] MEDS ORDERED: dexameTHASONE 10 MG IV IV ONE (09:00)
--- NOTE | 2019-06-14 09:34 | ONC.PHACK ---
CHEMO ADMIN CHECKLIST Order Contains Pt ID: Name, Order on Chemo Order Form?: Yes Order Form Includes ALL: Correct Tx Day, Correct Date, Correct Cycle Number Pt ID on Order form Matches: Pt ID on PHA Label Med on Chemo OrderForm Matches: PHA Label, Med Used for Preparation [facility] Jun 14, 2019 09:34
[2019-06-14] MEDS ORDERED: MANNITOL IV ONE ×3 (10:00)
[2019-06-14] MEDS ORDERED: CISPLATIN IV ONE ×3 (10:00)
[2019-06-14] MEDS ORDERED: ANDRODERM TD SCH (11:15)
[2019-06-14] MEDS ORDERED: [UNRECOGNIZED DRUG - OTHER] IV ONE ×2 (12:00)
[2019-06-14 14:00] VITALS: BP 158/98
[2019-06-14] MEDS: ANDRODERM TD SCH (14:38)
[2019-06-14] MEDS ORDERED: [UNRECOGNIZED DRUG - OTHER] IV SCH ×2 (18:00)
[2019-06-14] MEDS ORDERED: MAG SULF IV SCH ×2 (18:00)
[2019-06-14] MEDS ORDERED: MAG SULF 1GM/100ML (MAG RUN) X 2 DOSES (2GM TOTAL) IV SCH ×2 (20:00)
[2019-06-14 22:00] VITALS: BP 160/99
[2019-06-15 05:59] LABS: HEMATOCRIT 23.3 % (42.0-52.0); HEMOGLOBIN 8.1 g/dl (13.5-17.5); LYMPH # 0.5 10^3/uL (1.5-5.0); LYMPH % 4.4 % (24.0-44.0); MEAN CORPUSCULAR HEMOGLOBIN 30.7 pg (27.0-33.0); MEAN CORPUSCULAR HGB CONC 34.8 g/dl (32.0-36.5); MEAN CORPUSCULAR VOLUME 88.3 fl (80.0-96.0); MONO # 0.5 10^3/uL (0.0-0.8); MONO % 4.4 % (0.0-5.0); NEUTROPHILS # 10.1 10^3/uL (1.5-8.5); NEUTROPHILS % 90.2 % (36.0-66.0); PLATELET COUNT, AUTOMATED 190 10^3/uL (150-450); RED BLOOD COUNT 2.64 10^6/uL (4.30-6.10); WHITE BLOOD COUNT 11.3 10^3/uL (4.0-10.0)
[2019-06-15 06:00] VITALS: BP 151/97
[2019-06-15] MEDS: KCL 20MEQ IN D5/0.45NS 1000ML 1,000 ML IV SCH ×3 (06:10→12:18)
[2019-06-15 06:19] LABS: BLOOD UREA NITROGEN 10 MG/DL (7-18); CALCIUM LEVEL 7.1 MG/DL (8.5-10.1); CARBON DIOXIDE LEVEL 23 MEQ/L (21-32); CHLORIDE LEVEL 113 MEQ/L (98-107); CREATININE FOR GFR 1.15 MG/DL (0.70-1.30); GLOMERULAR FILTRATION RATE > 60.0 (>56); GLUCOSE, FASTING 133 MG/DL (70-100); MAGNESIUM LEVEL 1.7 MG/DL (1.8-2.4); POTASSIUM SERUM 4.5 MEQ/L (3.5-5.1); SODIUM LEVEL 139 MEQ/L (136-145)
[2019-06-15] MEDS: bisoproloL fumarate 5 MG TAB PO SCH (07:49)
[2019-06-15] MEDS: SIMVASTATIN 20 MG TAB PO SCH (07:49)
[2019-06-15] MEDS: HEPARIN SOD (PORCINE) 5000 UNITS/ML VIAL (J1644 PER 1000UNITS) SQ SCH ×2 (07:51→20:11)
[2019-06-15] MEDS: SUCRALFATE 1 GM TAB PO SCH ×4 (08:04→20:11)
[2019-06-15] MEDS: ANDRODERM TD SCH (08:04)
[2019-06-15] MEDS: PANTOPRAZOLE 40MG INJ (PROTONIX) (C9113) IV SCH ×2 (08:04→20:11)
[2019-06-15 08:36] VITALS: BP 137/89
[2019-06-15] MEDS ORDERED: FOSAPREPITANT PERIPHERAL LINE 30 MIN INFUSION (PREMIX) IV ONE ×2 (09:00)
[2019-06-15] MEDS: MAG SULF 1GM/100ML (MAG RUN) 1 GM in IV 1 EA IV SCH ×2 (09:00→15:07)
[2019-06-15] MEDS ORDERED: OLANZapine 10 MG PO PO ONE (09:00)
[2019-06-15] MEDS ORDERED: ONDANSETRON 4MG/2ML VIAL (J2405) IV ONE (09:00)
[2019-06-15] MEDS ORDERED: dexameTHASONE 10 MG IV IV ONE (09:00)
[2019-06-15] MEDS ORDERED: MANNITOL IV ONE ×3 (10:00)
[2019-06-15] MEDS ORDERED: CISPLATIN IV ONE ×3 (10:00)
[2019-06-15] MEDS ORDERED: SODIUM CHLORIDE IV ONE ×3 (10:00)
--- NOTE | 2019-06-15 10:15 | ONC.PHACK ---
CHEMO ADMIN CHECKLIST Order Contains Pt ID: Name, Order on Chemo Order Form?: Yes Order Form Includes ALL: Correct Tx Day, Correct Date, Correct Cycle Number Pt ID on Order form Matches: Pt ID on PHA Label Med on Chemo OrderForm Matches: PHA Label, Med Used for Preparation [facility] Jun 15, 2019 10:15
[2019-06-15] MEDS ORDERED: ETOPOSIDE IV ONE (12:00)
[2019-06-15] MEDS ORDERED: NS IV ONE (12:00)
[2019-06-15 15:00] VITALS: BP 144/94
[2019-06-15] MEDS ORDERED: MAG SULF 1GM/100ML (MAG RUN) 1 GM in IV 1 EA IV SCH (15:15)
[2019-06-15] MEDS ORDERED: KCL 20MEQ IN D5/0.45NS 1000ML 1,000 ML IV SCH (18:01)
--- NOTE | 2019-06-15 18:54 | IPNPDOC ---
Subjective Date Seen The patient was seen on 06/15/19. Subjective Chief Complaint/HPI increasd upper extremity swelling and facial puffiness, will cut down on IVF and may need lasix. Also had some so overnight . has gained about 5 kgs since admission. Objective Physical Examination General Exam: Positive: Alert, Cooperative, No Acute Distress Eye Exam: Positive: PERRLA, Conjunctiva & lids normal, EOMI; Negative: Sclera icteric ENT Exam: Positive: Atraumatic, Mucous membr. moist/pink, Pharynx Normal Neck Exam: Positive: Supple; Negative: JVD, thyromegaly Chest Exam: Positive: Clear to auscultation, Normal air movement Heart Exam: Positive: Rate Normal, Regular Rhythm, Normal S1, Normal S2; Negative: Murmurs, Rubs Abdomen Exam: Positive: Normal bowel sounds, Soft; Negative: Tenderness, Hepatospenomegaly Extremity Exam: Positive: Normal pulses; Negative: Clubbing, Cyanosis, Edema Skin Exam: Positive: Nl turgor and temperature; Negative: Breakdown, Lesion Assessment /Plan Assessment This is a 48-year-old male with recent diagnosis of right testicular cancer seminoma type IIB admitted for inpatient chemotherapy with Cisplatin , etoposide and bleomycin and for electrolytes, as well as renal failure monitoring. His symptoms started in December 2017, with fatigue and low energy. Testosterone testing revealed depressed levels and he began exogenous testosterone replacement therapy which improved his symptoms. In late summer 2018, he noticed enlargement of the right testicle and a mass measuring about 4.5 cm on ultrasound was found. He underwent a right radical orchiectomy in February [address] Calderon of urology. On a subsequent CT scan, he was found to have periaortic and intra-aortic lymphadenopathy and Began systemic chemotherapy in March 2019. He developed [place] based renal injury after the first cycle of chemotherapy. Which worsened due to poor oral intake at home after chemotherapy. So since April he has been getting inpatient chemotherapy with IVF post chemotherapy for 5 days. Patient complains that he has been having nausea and vomiting and abdominal pain for the past 3 weeks. Says every time he eats he has severe sharp abdominal pain after a few bites and then throws up. He has not been able to eat much at all. He has been unable to take oral medications as he throws them up. Denies any diarrhea. Stage II B seminoma status post right radical orchidectomy, currently on chemotherapy inpatient chemotherapy with cisplatin, etoposide and 1 dose of bleomycin. continue IVF with K reduced dose. If fluid overloaded will give lasix prn. Abdominal pain nausea and vomiting improving. Now able to eat all meals with minimal pain. acute gastritis / chemotherapy related pantoprazole, zofran and sucralfate if recurs will consult GI. DONOVAN creatinine normal continue IVF at lower rate . May need lasix prn as getting fluid overloaded. monitor daily labs. Hypokalemia corrected Hypomagnesemia replaced Protein calorie malnutrition Weight loss of 15 lbs since march inth past 2 months with poor oral intake due to chemotherapy and possibly gastritis/ esophagitis. Asthma continue symbicort and albuterol prn Hyperlipidemia statin GERD PPI Hypertension on bisoprolol. Plan/VTE VTE Prophylaxis Ordered?: Yes VS, I&O, 24H, Fishbone Vital Signs/I&O Vital Signs Date Time Temp Pulse Resp B/P (MAP) Pulse Ox O2 Delivery O2 Flow Rate FiO2 06/15/19 08:36 98.1 97 14 137/89 (105) 97 Room Air I&O- Last 24 Hours up to 6 AM 06/15/19 06:00 Intake Total 6115 ml Output Total 1550 ml Balance 4565 ml Laboratory Data 24H LABS Laboratory Tests 2 06/15/19 05:29: Immature Granulocyte % (Auto) 1.0, Neutrophils (%) (Auto) 90.2H, Lymphocytes (%) (Auto) 4.4L, Monocytes (%) (Auto) 4.4, Eosinophils (%) (Auto) 0.0, Basophils (%) (Auto) 0.0, Neutrophils # (Auto) 10.1H, Lymphocytes # (Auto) 0.5L, Monocytes # (Auto) 0.5, Eosinophils # (Auto) 0.0, Basophils # (Auto) 0.0, Nucleated Red Blood Cells % (auto) 0.0, Anion Gap 3L, Glomerular Filtration Rate > 60.0, Calcium Level 7.1L, Magnesium Level 1.7L CBC/BMP Laboratory Tests 06/15/19 05:29 ANDRÉS LAKE MD Jun 15, 2019 10:42
[2019-06-15 22:00] VITALS: BP 130/91
[2019-06-15 22:35] LABS: BLOOD UREA NITROGEN 14 MG/DL (7-18); CALCIUM LEVEL 7.8 MG/DL (8.5-10.1); CARBON DIOXIDE LEVEL 23 MEQ/L (21-32); CHLORIDE LEVEL 109 MEQ/L (98-107); CREATININE FOR GFR 1.26 MG/DL (0.70-1.30); GLOMERULAR FILTRATION RATE > 60.0 (>56); GLUCOSE, FASTING 174 MG/DL (70-100); POTASSIUM SERUM 5.3 MEQ/L (3.5-5.1); SODIUM LEVEL 136 MEQ/L (136-145)
[2019-06-16] MEDS: D5W/0.45% SODIUM CHLORIDE 1,000 ML IV SCH ×3 (00:14→23:34)
[2019-06-16 05:43] LABS: LYMPH # 0.4 10^3/uL (1.5-5.0); MEAN CORPUSCULAR HEMOGLOBIN 30.5 pg (27.0-33.0); MEAN CORPUSCULAR HGB CONC 34.8 g/dl (32.0-36.5); MEAN CORPUSCULAR VOLUME 87.8 fl (80.0-96.0); MONO # 0.1 10^3/uL (0.0-0.8); MONO % 1.9 % (0.0-5.0); NEUTROPHILS % 92.3 % (36.0-66.0); PLATELET COUNT, AUTOMATED 193 10^3/uL (150-450); RED BLOOD COUNT 2.62 10^6/uL (4.30-6.10); WHITE BLOOD COUNT 7.5 10^3/uL (4.0-10.0)
[2019-06-16 06:00] VITALS: BP 132/93
[2019-06-16 06:03] LABS: BLOOD UREA NITROGEN 17 MG/DL (7-18); CALCIUM LEVEL 7.8 MG/DL (8.5-10.1); CARBON DIOXIDE LEVEL 24 MEQ/L (21-32); CHLORIDE LEVEL 107 MEQ/L (98-107); CREATININE FOR GFR 1.23 MG/DL (0.70-1.30); GLOMERULAR FILTRATION RATE > 60.0 (>56); GLUCOSE, FASTING 131 MG/DL (70-100); MAGNESIUM LEVEL 1.7 MG/DL (1.8-2.4); POTASSIUM SERUM 5.1 MEQ/L (3.5-5.1); SODIUM LEVEL 136 MEQ/L (136-145)
[2019-06-16] MEDS: SUCRALFATE 1 GM TAB PO SCH ×4 (08:15→20:41)
[2019-06-16] MEDS: PANTOPRAZOLE 40MG INJ (PROTONIX) (C9113) IV SCH ×2 (08:15→20:41)
[2019-06-16] MEDS: ANDRODERM TD SCH (08:16)
[2019-06-16] MEDS: bisoproloL fumarate 5 MG TAB PO SCH (08:17)
[2019-06-16] MEDS: SIMVASTATIN 20 MG TAB PO SCH (08:17)
[2019-06-16] MEDS: HEPARIN SOD (PORCINE) 5000 UNITS/ML VIAL (J1644 PER 1000UNITS) SQ SCH ×2 (08:17→20:41)
[2019-06-16] MEDS ORDERED: ONDANSETRON 4MG/2ML VIAL (J2405) IV ONE (09:00)
[2019-06-16] MEDS ORDERED: dexameTHASONE 10 MG IV IV ONE (09:00)
[2019-06-16] MEDS ORDERED: OLANZapine 10 MG PO PO ONE (09:00)
[2019-06-16] MEDS ORDERED: MANNITOL IV ONE ×3 (10:00)
[2019-06-16] MEDS ORDERED: CISPLATIN IV ONE ×3 (10:00)
--- NOTE | 2019-06-16 10:02 | IPNPDOC ---
Subjective Date Seen The patient was seen on 06/16/19. Subjective Chief Complaint/HPI No complaints thsi morning. Denies any SOB, says the hand swelling and puffiness is much better. No fever or chills, abdominal pain almost resolved. Now eating all meals well. No nausea or vomiting. Objective Physical Examination General Exam: Positive: Alert, Cooperative, No Acute Distress Eye Exam: Positive: PERRLA, Conjunctiva & lids normal, EOMI; Negative: Sclera icteric ENT Exam: Positive: Atraumatic, Mucous membr. moist/pink, Pharynx Normal Neck Exam: Positive: Supple; Negative: JVD, thyromegaly Chest Exam: Positive: Clear to auscultation, Normal air movement Heart Exam: Positive: Rate Normal, Regular Rhythm, Normal S1, Normal S2; Negative: Murmurs, Rubs Abdomen Exam: Positive: Normal bowel sounds, Soft; Negative: Tenderness, Hepatospenomegaly Extremity Exam: Positive: Normal pulses; Negative: Clubbing, Cyanosis, Edema Skin Exam: Positive: Nl turgor and temperature; Negative: Breakdown, Lesion Assessment /Plan Assessment This is a 48-year-old male with recent diagnosis of right testicular cancer seminoma type IIB admitted for inpatient chemotherapy with Cisplatin , etoposide and bleomycin and for electrolytes, as well as renal failure monitoring. His symptoms started in December 2017, with fatigue and low energy. Testosterone testing revealed depressed levels and he began exogenous testosterone replacement therapy which improved his symptoms. In late summer 2018, he noticed enlargement of the right testicle and a mass measuring about 4.5 cm on u ltrasound was found. He underwent a right radical orchidectomy in February [address] Calderon of urology. On a subsequent CT scan, he was found to have periaortic and intra-aortic lymphadenopathy and Began systemic chemotherapy in March 2019. He developed [place] based renal injury after the first cycle of chemotherapy. Which worsened due to poor oral intake at home after chemotherapy. So since April he has been getting inpatient chemotherapy with IVF post chemotherapy for 5 days. Patient complains that he has been having nausea and vomiting and abdominal pain for the past 3 weeks. Says every time he eats he has severe sharp abdominal pain after a few bites and then throws up. He has not been able to eat much at all. He has been unable to take oral medications as he throws them up. Denies any diarrhea. Stage II B seminoma status post right radical orchidectomy, currently on chemotherapy inpatient chemotherapy with cisplatin, etoposide and 1 dose of bleomycin. continue IVF with K reduced dose. If fluid overloaded will give lasix prn. Abdominal pain nausea and vomiting improving. Now able to eat all meals with minimal pain. acute gastritis / chemotherapy related pantoprazole, zofran and sucralfate if recurs will consult GI. DONOVAN creatinine normal continue IVF at lower rate . May need lasix prn as getting fluid overloaded. monitor daily labs. Hypokalemia corrected Hypomagnesemia continue replacement. Protein calorie malnutrition Weight loss of 15 lbs since march inth past 2 months with poor oral intake due to chemotherapy and possibly gastritis/ esophagitis. Asthma continue symbicort and albuterol prn Hyperlipidemia statin GERD PPI Hypertension on bisoprolol. Plan/VTE VTE Prophylaxis Ordered?: Yes VS, I&O, 24H, Fishbone Vital Signs/I&O Vital Signs Date Time Temp Pulse Resp B/P (MAP) Pulse Ox O2 Delivery O2 Flow Rate FiO2 06/16/19 06:00 98.3 107 18 132/93 (106) 96 Room Air I&O- Last 24 Hours up to 6 AM 06/16/19 06:00 Intake Total 1140 ml Output Total 1825 ml Balance -685 ml Laboratory Data 24H LABS Laboratory Tests 2 06/15/19 22:05: Anion Gap 4L, Glomerular Filtration Rate > 60.0, Calcium Level 7.8L 06/16/19 05:32: Anion Gap 5L, Glomerular Filtration Rate > 60.0, Calcium Level 7.8L, Immature Granulocyte % (Auto) 0.8, Neutrophils (%) (Auto) 92.3H, Lymphocytes (%) (Auto) 5.0L, Monocytes (%) (Auto) 1.9, Eosinophils (%) (Auto) 0.0, Basophils (%) (Auto) 0.0, Neutrophils # (Auto) 7.0, Lymphocytes # (Auto) 0.4L, Monocytes # (Auto) 0.1, Eosinophils # (Auto) 0.0, Basophils # (Auto) 0.0, Nucleated Red Blood Cells % (auto) 0.0, Magnesium Level 1.7L CBC/BMP Laboratory Tests 06/15/19 22:05 06/16/19 05:32 ANDRÉS LAKE MD Jun 16, 2019 10:02
[2019-06-16] MEDS ORDERED: [UNRECOGNIZED DRUG - OTHER] IV ONE ×2 (12:00)
--- NOTE | 2019-06-16 14:20 | ONC.PHACK ---
CHEMO ADMIN CHECKLIST Order Contains Pt ID: Name, Order on Chemo Order Form?: Yes Order Form Includes ALL: Correct Tx Day, Correct Date, Correct Cycle Number Pt ID on Order form Matches: Pt ID on PHA Label Med on Chemo OrderForm Matches: PHA Label, Med Used for Preparation [facility] Jun 16, 2019 14:20
[2019-06-16 14:45] VITALS: BP 153/96
[2019-06-16] MEDS: MAG SULF 1GM/100ML (MAG RUN) X 2 DOSES (2GM TOTAL) IV SCH ×4 (15:08→17:59)
[2019-06-16 22:00] VITALS: BP 153/97
[2019-06-17 06:00] VITALS: BP 149/91
[2019-06-17 06:21] LABS: HEMATOCRIT 22.7 % (42.0-52.0); HEMOGLOBIN 8.1 g/dl (13.5-17.5); LYMPH # 0.4 10^3/uL (1.5-5.0); LYMPH % 6.7 % (24.0-44.0); MEAN CORPUSCULAR HEMOGLOBIN 30.9 pg (27.0-33.0); MEAN CORPUSCULAR HGB CONC 35.7 g/dl (32.0-36.5); MEAN CORPUSCULAR VOLUME 86.6 fl (80.0-96.0); MONO # 0.1 10^3/uL (0.0-0.8); MONO % 1.3 % (0.0-5.0); NEUTROPHILS # 4.9 10^3/uL (1.5-8.5); NEUTROPHILS % 90.9 % (36.0-66.0); PLATELET COUNT, AUTOMATED 198 10^3/uL (150-450); RED BLOOD COUNT 2.62 10^6/uL (4.30-6.10); WHITE BLOOD COUNT 5.4 10^3/uL (4.0-10.0)
[2019-06-17 06:38] LABS: BLOOD UREA NITROGEN 26 MG/DL (7-18); CALCIUM LEVEL 8.2 MG/DL (8.5-10.1); CARBON DIOXIDE LEVEL 27 MEQ/L (21-32); CHLORIDE LEVEL 103 MEQ/L (98-107); CREATININE FOR GFR 1.31 MG/DL (0.70-1.30); GLOMERULAR FILTRATION RATE > 60.0 (>56); GLUCOSE, FASTING 108 MG/DL (70-100); MAGNESIUM LEVEL 1.8 MG/DL (1.8-2.4); POTASSIUM SERUM 4.7 MEQ/L (3.5-5.1); SODIUM LEVEL 134 MEQ/L (136-145)
[2019-06-17] MEDS: SUCRALFATE 1 GM TAB PO SCH (07:30)
[2019-06-17] MEDS: HEPARIN SOD (PORCINE) 5000 UNITS/ML VIAL (J1644 PER 1000UNITS) SQ SCH (08:36)
[2019-06-17] MEDS: bisoproloL fumarate 5 MG TAB PO SCH (08:36)
[2019-06-17] MEDS: SIMVASTATIN 20 MG TAB PO SCH (08:36)
[2019-06-17] MEDS: PANTOPRAZOLE 40MG INJ (PROTONIX) (C9113) IV SCH (08:36)
[2019-06-17] MEDS: ANDRODERM TD SCH (08:37)
[2019-06-17] MEDS ORDERED: SUCR1TA PO (08:59)
[2019-06-17] MEDS ORDERED: OMEP40CA97 PO (08:59)
--- NOTE | 2019-06-17 10:17 | DS.PDOC ---
Discharge Summary General Date of Admission Jun 12, 2019 at 15:53 Date of Discharge 06/17/19 Discharge Summary PROCEDURES PERFORMED DURING STAY: [None]. DISCHARGE DIAGNOSES: Inpatient chemotherapy for Seminoma type IIB DONOVAN Acute gastritis/ esophagitis Protein calorie malnutrition Hypokalemia Hypomagnesemia Asthma H/o Hyperlipidemia GERD Hypertension COMPLICATIONS/CHIEF COMPLAINT: Inpatient Fluids With Chemo. HISTORY OF PRESENT ILLNESS: See history and physical HOSPITAL COURSE: This is a 48-year-old male with recent diagnosis of right testicular cancer seminoma type IIB admitted for inpatient chemotherapy with Cisplatin , etoposide and bleomycin and for electrolytes, as well as renal failure monitoring. His symptoms started in December 2017, with fatigue and low energy. Testosterone testing revealed depressed levels and he began exogenous testosterone replacement therapy which improved his symptoms. In late summer 2018, he noticed enlargement of the right testicle and a mass measuring about 4.5 cm on ultrasound was found. He underwent a right radical orchidectomy in February [address] Calderon of urology. On a subsequent CT scan, he was found to have periaortic and intra-aortic lymphadenopathy and Began systemic chemotherapy in March 2019. He developed [place] based renal injury after the first cycle of chemotherapy. Which worsened due to poor oral intake at home after chemotherapy. So since April he has been getting inpatient chemotherapy with IVF post chemotherapy for 5 days. Patient complains that he has been having nausea and vomiting and abdominal pain for the past 3 weeks. Says every time he eats he has severe sharp abdominal pain after a few bites and then throws up. He has not been able to eat much at all. He has been unable to take oral medications as he throws them up. Denies any diarrhea. Stage II B seminoma status post right radical orchidectomy, currently on chemotherapy inpatient chemotherapy with cisplatin, etoposide and 1 dose of bleomycin. continue IVF with K reduced dose. If fluid overloaded will give lasix prn. Abdominal pain nausea and vomiting improved Now able to eat all meals with minimal pain. acute gastritis / chemotherapy related omeprazole and sucralfate DONOVAN creatinine at baseline Hypokalemia corrected Hypomagnesemia corrected Protein calorie malnutrition Weight loss of 15 lbs since march inth past 2 months with poor oral intake due to chemotherapy and possibly gastritis/ esophagitis. Asthma continue symbicort and albuterol prn Hyperlipidemia statin GERD PPI Hypertension on bisoprolol and HCTZ. DISCHARGE MEDICATIONS: Please see below. ALLERGIES: Please see below. PHYSICAL EXAMINATION ON DISCHARGE: VITAL SIGNS: Please see below. General Exam: Positive: Alert, Cooperative, No Acute Distress Eye Exam: Positive: PERRLA, Conjunctiva & lids normal, EOMI; Negative: Sclera icteric ENT Exam: Positive: Atraumatic, Mucous membr. moist/pink, Pharynx Normal Neck Exam: Positive: Supple; Negative: JVD, thyromegaly Chest Exam: Positive: Clear to auscultation, Normal air movement Heart Exam: Positive: Rate Normal, Regular Rhythm, Normal S1, Normal S2; Negative: Murmurs, Rubs Abdomen Exam: Positive: Normal bowel sounds, Soft; Negative: Tenderness, Hepatospenomegaly Extremity Exam: Positive: Normal pulses; Negative: Clubbing, Cyanosis, Edema Skin Exam: Positive: Nl turgor and temperature; Negative: Breakdown, Lesion LABORATORY DATA: Please see below. ACTIVITY: [As tolerated]. DIET: As tolerated DISCHARGE PLAN: Home DISPOSITION: . DISCHARGE INSTRUCTIONS: Follow up with oncology as per outpatient schedule. DISCHARGE CONDITION: [Stable]. TIME SPENT ON DISCHARGE: 35 minutes. Vital Signs/I&Os Vital Signs Date Time Temp Pulse Resp B/P (MAP) Pulse Ox O2 Delivery O2 Flow Rate FiO2 06/17/19 06:00 98.7 96 16 149/91 (110) 97 Room Air I&O- Last 24 Hours up to 6 AM 06/17/19 06:00 Intake Total 660 ml Output Total 875 ml Balance -215 ml Laboratory Data Labs 24H Laboratory Tests 2 06/17/19 05:23: Immature Granulocyte % (Auto) 1.1, Neutrophils (%) (Auto) 90.9H, Lymphocytes (%) (Auto) 6.7L, Monocytes (%) (Auto) 1.3, Eosinophils (%) (Auto) 0.0, Basophils (%) (Auto) 0.0, Neutrophils # (Auto) 4.9, Lymphocytes # (Auto) 0.4L, Monocytes # (Auto) 0.1, Eosinophils # (Auto) 0.0, Basophils # (Auto) 0.0, Nucleated Red Blood Cells % (auto) 0.0, Anion Gap 4L, Glomerular Filtration Rate > 60.0, Calcium Level 8.2L, Magnesium Level 1.8 CBC/BMP Laboratory Tests 06/17/19 05:23 Discharge Medications Scheduled Bisoprolol/Hydrochlorothiazide (Bisoprolol-Hctz 5-6.25 mg Tab) 1 Each Tablet, 1 TAB PO DAILY, (Reported) Cholecalciferol (Vitamin D3) (Vitamin D3) 1,000 Unit Tablet, 2,000 UNITS PO DAILY, (Reported) Cholestyramine (with Sugar) (Cholestyramine Packet) 4 Gm Powd.pack, 4 GM PO BID, (Reported) Omeprazole (Omeprazole) 40 Mg Capsule.dr, 40 MG PO BID Simvastatin (Simvastatin) 20 Mg Tablet, 20 MG PO DAILY, (Reported) Sucralfate (Sucralfate) 1 Gm Tablet, 1 GM PO ACHS Testosterone (Androderm) 4 Mg Patch.td24, 4 MG TD DAILY, (Reported) CURRENTLY APPLIED TO RIGHT LOWER LEG Scheduled PRN Albuterol Sulfate (Albuterol Sulfate Hfa) 8.5 Gm Hfa.aer.ad, 2 PUFF INH Q4H PRN for SHORTNESS OF BREATH, (Reported) Budesonide/Formoterol (Symbicort 160-4.5 Mcg Inhaler) 6 Gm Hfa.aer.ad, 2 PUFF INH BID PRN for SHORTNESS OF BREATH, (Reported) Allergies Coded Allergies: No Known Allergies (Unverified , 03/02/19) ANDRÉS LAKE MD Jun 17, 2019 10:16
== END 2019-06-17 11:20 | disposition home or self-care (01) | DRG 696 ==
LOC: M MSPAV 15:53
PROVIDERS: ADMIT Internal Medicine Nephrology; ATTEND Internal Medicine Nephrology
DX: Z51.11 Encounter for antineoplastic chemotherapy (principal); N17.9 Acute kidney failure, unspecified; E46 Unspecified protein-calorie malnutrition; C62.91 Malignant neoplasm of right testis, unspecified whether descended or undescended; E83.42 Hypomagnesemia; E87.6 Hypokalemia; J45.909 Unspecified asthma, uncomplicated; K21.9 Gastro-esophageal reflux disease without esophagitis; E78.5 Hyperlipidemia, unspecified; I10 Essential (primary) hypertension; Z90.79 Acquired absence of other genital organ(s); R11.2 Nausea with vomiting, unspecified; Z79.899 Other long term (current) drug therapy; K29.60 Other gastritis without bleeding; R22.33 Localized swelling, mass and lump, upper limb, bilateral; K20.8 Other esophagitis

== ENCOUNTER → 2019-08-01 | Outpatient (CLI) | payer BC, OTHER ==
[~2019-08-01] MED LIST changes: +ALBU8.5H INH; +GASTROGRAFIN SOLUTION 30ML (Q9963) As Ordered ONE; +ISOVUE-370 76% 100ML VIAL As Ordered ONE; -POTASSIUM CHLORIDE 10 MEQ SR TABLET PO ONE; +SUCR1TA PO; +VITAD1000T PO
--- NOTE | 2019-08-02 07:19 | REP ---
Clinical: Restaging testicular carcinoma. Technique: Axial noncontrast images from the thoracic inlet to the upper abdomen with coronal and sagittal re-formations. Comparison: 03/30/2019. Findings: Current examination demonstrates minimal scattered nonspecific bibasilar fibroatelectatic changes. No focal consolidation, significant nodule or mass lesion is identified. No pleural effusion. No pneumothorax. No significant adenopathy. Tracheobronchial tree is patent. Mediastinum demonstrates normal thoracic aorta, pulmonary vasculature and heart/pericardium. Surrounding musculoskeletal structures without focal osseous abnormality. Impression: Minimal nonspecific scattered bibasilar fibroatelectatic changes. No nodule, consolidation, effusion, or mass. No adenopathy. Electronically Signed by Norman Oniell MD 08/02/2019 07:09 A
--- NOTE | 2019-08-02 07:23 | REP ---
Clinical: Restaging testicular carcinoma. Technique: Axial images from the lung bases to the pubic symphysis with coronal and sagittal re-formations obtained after the administration of oral intraluminal contrast. Comparison: None. Findings: Mildly prominent periaortic retroperitoneal lymph nodes are suggested and measure up to approximately 16.5 mm maximal diameter. Liver, spleen, pancreas, bilateral adrenal glands and kidneys are normal for noncontrast evaluation. Evidence of prior cholecystectomy noted. Small hiatal hernia at the gastroesophageal junction noted. The enteric system is without obstruction or acute inflammatory process. Pelvis demonstrates normal bladder and age appropriate prostate/seminal vesicles. No ascites. No free air. Abdominal aorta without aneurysm. Impression: 1. Mildly prominent retroperitoneal/para-aortic lymph nodes measuring up to 16.5 mm maximal diameter concerning for active pathology including possible metastatic disease. Correlation and follow up is recommended. 2. Otherwise essentially unremarkable noncontrast CT of the abdomen and pelvis. Electronically Signed by Norman Oneill MD 08/02/2019 07:13 A
== END ==
LOC: M RAD 13:15
PROVIDERS: ATTEND Internal Medicine Hematology
DX: C62.90 Malignant neoplasm of unspecified testis, unspecified whether descended or undescended (principal)
CPT/HCPCS: 71250; 74176; Q9963

== ENCOUNTER → 2019-11-13 | Outpatient (CLI) | payer BC, OTHER ==
[~2019-11-13] MED LIST changes: +D31000TA2 PO; -VITAD1000T PO
--- NOTE | 2019-12-19 10:24 | REP ---
CT ABDOMEN AND PELVIS WITHOUT IV BUT WITH ORAL CONTRAST HISTORY: Testicular carcinoma. IV contrast could not be administered as we were unable to achieve intravenous access. COMPARISON: CT study 08/01/2019. CT FINDINGS: Preliminary digital ranch rider radiograph is unremarkable. The lung bases are clear on axial CT images. The liver and spleen are normal in size and homogeneous in texture. The gallbladder is surgically absent. No abnormality noted in the adrenal glands. There is a small accessory splenule near the pancreatic tail unchanged. No renal mass or hydronephrosis is seen. Small and large bowel loops are normal in the abdomen and pelvis. Normal appendix is noted. Previous study showed mild periaortic and aortocaval lymphadenopathy. This is again present essentially unchanged. No evidence of progression. Largest lymph node is a left periaortic lymph node measuring 1.7 x 1.4 x 2.4 cm. There is a anterior aortocaval lymph node measures 1.0 x 2.4 x 1.3 cm. No new adenopathy is seen. No pelvic adenopathy is noted. Bladder, seminal vesicles, and urinary bladder are unremarkable. No abdominal wall defect is seen. There appear to be postoperative fibrotic changes in the right inguinal soft tissues. IMPRESSION: Findings consistent with metastatic retroperitoneal lymphadenopathy essentially unchanged from 08/01/2019. MTDD
== END ==
LOC: M RAD 11:00
PROVIDERS: ATTEND Specialist
DX: Z85.47 Personal history of malignant neoplasm of testis (principal)
CPT/HCPCS: 74176; Q9963

== ENCOUNTER → 2020-02-12 | Outpatient (CLI) | payer BC, OTHER ==
[~2020-02-12] MED LIST changes: -ISOVUE-370 76% 100ML VIAL As Ordered ONE
--- NOTE | 2020-02-12 11:12 | REP ---
INDICATION: TESTICULAR CA CT 1ST XR 2ND COMPARISON: 05/30/2019 TECHNIQUE: PA and lateral. FINDINGS: The mediastinum and cardiac silhouette are normal. The lung golden are clear and without acute consolidation, effusion, or pneumothorax. The skeletal structures are intact and normal. IMPRESSION: No acute cardiopulmonary process. <Electronically signed by Norman Oneill > 02/12/20 [id number]
--- NOTE | 2020-02-14 06:28 | REP ---
INDICATION: TESTICULAR CA CT 1ST XR 2ND COMPARISON: 11/13/2019 TECHNIQUE: Axial noncontrast images from the lung bases to the pubic symphysis with coronal and sagittal reformations. Oral contrast administered prior to imaging as per protocol. This CT examination was performed using the following dose reduction techniques: Automated exposure control, adjustment of mA and/or kv according to the patient's size, and use of iterative reconstruction technique. FINDINGS: Lung bases are clear. Visualized heart and pericardium normal. Liver, spleen, pancreas, bilateral adrenal glands and kidneys are normal. Evidence for prior cholecystectomy. The enteric system is unremarkable and without obstruction or acute inflammatory process. Normal terminal ileum and appendix identified in the right lower quadrant. Pelvis demonstrates normal bladder and age-appropriate uterus/adnexa. Retroperitoneal adenopathy is again appreciated and may be slightly improved. The largest discernible lymph node is identified in the left periaortic space and measures approximately 1.7 cm maximal transverse diameter. No ascites. No free air. No focal inflammatory stranding. Abdominal aorta without aneurysm. Musculoskeletal structures are intact and without acute osseous abnormality. IMPRESSION: 1. Retroperitoneal adenopathy consistent with metastatic disease appears similar/minimally improved when compared to 11/13/2019. No new mass lesion or further adenopathy appreciated. <Electronically signed by Norman Oneill > 02/14/20 [id number]
== END ==
LOC: M RAD 08:57
PROVIDERS: ATTEND Specialist
DX: C62.90 Malignant neoplasm of unspecified testis, unspecified whether descended or undescended (principal)
CPT/HCPCS: 71046; 74176; Q9963

== ENCOUNTER → 2020-08-12 | Outpatient (CLI) | payer BC, OTHER ==
--- NOTE | 2020-08-12 14:45 | REP ---
INDICATION: TESTICULAR CANCER COMPARISON: 02/02/2020 TECHNIQUE: PA and lateral. FINDINGS: The mediastinum and cardiac silhouette are normal. The lung golden are clear and without acute consolidation, effusion, or pneumothorax. The skeletal structures are intact and normal. IMPRESSION: No acute cardiopulmonary process. <Electronically signed by Norman Oneill > 08/12/20 [id number]
--- NOTE | 2020-08-13 02:46 | REP ---
INDICATION: TESTIS CA COMPARISON: 02/12/2020 TECHNIQUE: Axial noncontrast images from the lung bases to the pubic symphysis with coronal and sagittal reformations. Oral contrast administered prior to imaging. This CT examination was performed using the following dose reduction techniques: Automated exposure control, adjustment of mA and/or kv according to the patient's size, and use of iterative reconstruction technique. FINDINGS: Lung bases are clear. Visualized heart and pericardium normal. Liver, spleen, pancreas, bilateral adrenal glands and kidneys are normal. The enteric system is unremarkable and without obstruction or acute inflammatory process. Normal terminal ileum and cecum identified in the right lower quadrant. Pelvis demonstrates normal bladder and age-appropriate uterus/adnexa. Few retroperitoneal periaortic lymph nodes are again identified and relatively unchanged. No new adenopathy is identified. No ascites. No free air. No focal inflammatory stranding. Abdominal aorta without aneurysm. Musculoskeletal structures are intact and without acute osseous abnormality. IMPRESSION: 1. No acute abdominopelvic pathology appreciated. 2. Stable appearance to few mildly prominent lymph nodes in the retroperitoneum/para-aortic distribution as previously noted. 3. No evidence for new metastatic disease. <Electronically signed by Norman Oneill > 08/13/20 [id number]
== END ==
LOC: M RAD 12:45
PROVIDERS: ATTEND Specialist
DX: C62.90 Malignant neoplasm of unspecified testis, unspecified whether descended or undescended (principal)
CPT/HCPCS: 71046; 74176; Q9963

== ENCOUNTER → 2021-03-03 | Outpatient (REF) | payer BC, OTHER ==
[~2021-03-03] MED LIST changes: -GASTROGRAFIN SOLUTION 30ML (Q9963) As Ordered ONE; +OMEP40CA4 PO; -OMEP40CA97 PO
== END ==
LOC: M LAB REF 11:34
PROVIDERS: ATTEND Urology
DX: Z12.5 Encounter for screening for malignant neoplasm of prostate (principal); R79.89 Other specified abnormal findings of blood chemistry
CPT/HCPCS: 84403; G0103

== ENCOUNTER → 2021-03-03 | Outpatient (CLI) | payer BC, OTHER ==
[~2021-03-03] MED LIST changes: +GASTROGRAFIN SOLUTION 30ML (Q9963) As Ordered ONE; +ISOVUE-370 76% 100ML VIAL As Ordered ONE
--- NOTE | 2021-03-04 05:00 | REP ---
INDICATION: TESTICULAR CANCER COMPARISON: 08/12/2020 TECHNIQUE: Axial noncontrast images from the lung bases to the pubic symphysis with coronal and sagittal reformations. This CT examination was performed using the following dose reduction techniques: Automated exposure control, adjustment of mA and/or kv according to the patient's size, and use of iterative reconstruction technique. FINDINGS: Lung bases are clear. Visualized heart and pericardium normal. Liver, spleen, pancreas, bilateral adrenal glands and kidneys are normal. The enteric system is unremarkable and without obstruction or acute inflammatory process. Normal terminal ileum and appendix identified in the right lower quadrant. Scattered sigmoid diverticula noted without acute diverticulitis. Pelvis demonstrates normal bladder and age-appropriate prostate/seminal vesicles.. Few stable retroperitoneal/periaortic lymph nodes are again identified and now demonstrate subtle elements of punctate calcification suggesting chronic change. No ascites. No free air. No focal inflammatory stranding. Abdominal aorta without aneurysm. Musculoskeletal structures are intact and without acute osseous abnormality. IMPRESSION: No acute abdominopelvic pathology appreciated. Few stable scattered primarily retroperitoneal/periaortic lymph nodes. <Electronically signed by Norman Oneill > 03/04/21 0410
== END ==
LOC: M RAD 12:16
PROVIDERS: ATTEND Specialist
DX: C62.90 Malignant neoplasm of unspecified testis, unspecified whether descended or undescended (principal)

== ENCOUNTER → 2022-03-31 | Outpatient (CLI) | payer BC, OTHER ==
[~2022-03-31] MED LIST changes: +BISO1TAB18 PO; -BISO5TAB2 PO; +CHOL4POW26 PO; -CHOL4POW4 PO; -D31000TA2 PO; -GASTROGRAFIN SOLUTION 30ML (Q9963) As Ordered ONE; +HYDR200T3; -ISOVUE-370 76% 100ML VIAL As Ordered ONE; +VITA100093 PO
== END ==
LOC: M PLALAB 11:57
PROVIDERS: ATTEND Urology
DX: C62.90 Malignant neoplasm of unspecified testis, unspecified whether descended or undescended (principal)